=== PATIENT | male | born 1960 | race Caucasian/White ===

== ENCOUNTER 2020-09-01 11:25 | Inpatient (IN) ==
[2020-09-01] MEDS ORDERED: methylPREDNISolone SOD SUC 125 MG/2 ML VIAL IV STA (12:25)
[2020-09-01 12:30] LABS: Basophils % 0.3 % (0.0-0.8); Eosinophils % 0.4 % (0.00-10.9); Hematocrit 45.9 VOL% (42.0-52.0); Hemoglobin 15.2 GM/DL (14.0-18.0); Immature Granulocytes % 0.7 %; Immature Granulocytes Absolute 0.07 #; Lymphocytes # 0.4 10*3/uL (1.4-4.0); Mean Corpuscular HGB Conc 33.1 GM/DL (32-36); Mean Corpuscular Volume 93.1 FL (87-102); Monocytes % 13.9 % (1.7-12.7); Neutrophils % 80.7 % (38.7-73.9); Platelet Count 222 T/CUMM (130-400); Red Blood Count 4.93 MC/CUMM (3.8-5.5); Red Cell Distribution Width 13.5 % (9.3-17.3); White Blood Count 10.5 T/CUMM (4-12)
[2020-09-01] MEDS ORDERED: ALBUTEROL NEB SOLN 5 MG/ML 20 ML/BOTTLE CONT NEB SCH (12:30)
[2020-09-01 13:03] LABS: Albumin 3.1 G/DL (3.4-5.0); Bilirubin,Total 0.5 MG/DL (0.2-1.0); Calcium 9.6 MG/DL (8.5-10.1); Osmolality,Calculated 273.1 MOS/KG (273-304); Total Protein 7.8 G/DL (6.4-8.3)
[2020-09-01 13:10] LABS: Band Neutrophils 50 % (0-10); Lymphocytes 5 % (20-55); Metamyelocytes 4 %; Platelet Estimate Normal; Segmented Neutrophils 28 % (50-85); Total Cells Counted 100
[2020-09-01 13:11] LABS: Anisocytosis Slight; Burr Cells Few; Smudge Cells Few
[2020-09-01 13:12] LABS: Macrocytosis Slight
[2020-09-01] MEDS ORDERED: ACETAMINOPHEN 325 MG TABLET PO PRN (14:21)
[2020-09-01] MEDS ORDERED: ALBUTEROL 2.5 MG/3 ML NEB RESP TX PRN (14:21)
[2020-09-01] MEDS ORDERED: ONDANSETRON 4 MG/2 ML VIAL IV PRN (14:21)
[2020-09-01] MEDS ORDERED: AZITHROMYCIN INJ 500 MG in SODIUM CHLORIDE 0.9% 250 ML IV STA (14:25)
[2020-09-01] MEDS ORDERED: GLUCAGON 1 MG VIAL IM PRN (14:26)
[2020-09-01] MEDS ORDERED: DEXTROSE 50% 25 GM/50 ML VIAL IV PRN (14:26)
[2020-09-01] MEDS ORDERED: SODIUM CHLORIDE 0.9% 1,000 ML IV SCH (14:30)
[2020-09-01] MEDS: ENOXAPARIN 30 MG/0.3 ML SYRINGE SUBCUT SCH (14:55)
[2020-09-01] MEDS: BUDESONIDE/FORMOTEROL 160-4.5 INHALER 6 GM INH SCH ×2 (15:08→20:27)
[2020-09-01] MEDS: cefTRIAXone 1,000 MG in SYRINGE 1 EACH IV SCH (15:10)
[2020-09-01] MEDS: methylPREDNISolone SOD SUC 125 MG/2 ML VIAL IV SCH ×2 (15:11→20:29)
[2020-09-01] MEDS: INSULIN REGULAR 100 UNIT/ML SUBCUT SCH ×2 (16:40→20:17)
[2020-09-01] MEDS: ALBUTEROL/IPRATROPIUM 3 ML NEB RESP TX SCH ×2 (20:10→20:22)
[2020-09-02] MEDS: ALBUTEROL/IPRATROPIUM 3 ML NEB RESP TX SCH ×7 (01:20→19:25)
[2020-09-02] MEDS: methylPREDNISolone SOD SUC 125 MG/2 ML VIAL IV SCH ×4 (02:50→20:51)
[2020-09-02 03:33] LABS: ABG Base Excess 1.3 MMOL/L (-2.5-2.5); ABG HCO3 29.6 MMOL/L (20-26); ABG Oxygen Saturation 92.7 % (95-100); ABG PCO2 65.1 MM HG (35-48); ABG PH 7.276 (7.35-7.45); ABG PO2 70.2 MM HG (80-95); ABG TCO2 31.6 MMOL/L (23-27)
[2020-09-02] MEDS ORDERED: MORPHINE 4 MG/1 ML VIAL IV PRN (06:20)
[2020-09-02] MEDS ORDERED: NITROGLYCERIN SL 0.4 MG TABLET SL PRN (06:20)
[2020-09-02] MEDS ORDERED: ASPIRIN CHEW 81 MG TABLET PO ONE (06:20)
[2020-09-02] MEDS ORDERED: NITROGLYCERIN SL 0.4 MG TABLET SL ONE (06:21)
[2020-09-02 06:28] LABS: Albumin 2.4 G/DL (3.4-5.0); Bilirubin,Total 0.5 MG/DL (0.2-1.0); Calcium 9.2 MG/DL (8.5-10.1); Osmolality,Calculated 281.4 MOS/KG (273-304); Risk Ratio 3.28; Total Protein 6.6 G/DL (6.4-8.3); VLDL CHOLESTEROL 14.6 MG/DL
[2020-09-02 06:38] LABS: Hematocrit 39.2 VOL% (42.0-52.0); Immature Granulocytes % 1.2 %; Immature Granulocytes Absolute 0.05 #; Lymphocytes # 0.2 10*3/uL (1.4-4.0); Lymphocytes % 5.3 % (21.2-54.2); Mean Corpuscular HGB Conc 32.7 GM/DL (32-36); Mean Corpuscular Volume 91.4 FL (87-102); Mean Platelet Volume 10.3 FL (9.6-12.0); Neutrophils % 83.5 % (38.7-73.9); Platelet Count 190 T/CUMM (130-400); Red Blood Count 4.29 MC/CUMM (3.8-5.5); Red Cell Distribution Width 13.6 % (9.3-17.3); White Blood Count 4.1 T/CUMM (4-12)
[2020-09-02 06:41] LABS: Hemoglobin 12.8 GM/DL (14.0-18.0)
[2020-09-02 06:54] LABS: Band Neutrophils 19 % (0-10); Hypochromasia Slight; Lymphocytes 6 % (20-55); Metamyelocytes 4 %; Platelet Estimate Normal; Segmented Neutrophils 61 % (50-85); Total Cells Counted 100
[2020-09-02] MEDS: INSULIN REGULAR 100 UNIT/ML SUBCUT SCH ×4 (07:33→20:15)
[2020-09-02] MEDS: BUDESONIDE/FORMOTEROL 160-4.5 INHALER 6 GM INH SCH ×2 (08:36→20:51)
[2020-09-02] MEDS: PANTOPRAZOLE 40 MG TABLET PO SCH (08:36)
[2020-09-02] MEDS: ENOXAPARIN 30 MG/0.3 ML SYRINGE SUBCUT SCH (14:38)
[2020-09-02] MEDS: cefTRIAXone 1,000 MG in SYRINGE 1 EACH IV SCH (14:38)
[2020-09-02] MEDS: AZITHROMYCIN INJ 250 MG in SODIUM CHLORIDE 0.9% 250 ML IV SCH (14:41)
[2020-09-03] MEDS: ALBUTEROL/IPRATROPIUM 3 ML NEB RESP TX SCH ×7 (00:04→23:50)
[2020-09-03] MEDS: methylPREDNISolone SOD SUC 125 MG/2 ML VIAL IV SCH ×4 (02:47→20:51)
[2020-09-03 08:30] LABS: Calcium 9.4 MG/DL (8.5-10.1)
[2020-09-03 08:31] LABS: Osmolality,Calculated 294.4 MOS/KG (273-304)
[2020-09-03] MEDS: INSULIN REGULAR 100 UNIT/ML SUBCUT SCH ×4 (08:31→22:11)
[2020-09-03] MEDS: BUDESONIDE/FORMOTEROL 160-4.5 INHALER 6 GM INH SCH ×2 (08:32→21:08)
[2020-09-03] MEDS: PANTOPRAZOLE 40 MG TABLET PO SCH (08:32)
[2020-09-03 08:37] LABS: ABG Base Excess -0.2 MMOL/L (-2.5-2.5); ABG HCO3 24.1 MMOL/L (20-26); ABG Oxygen Saturation 90.4 % (95-100); ABG PO2 67.4 MM HG (80-95); ABG TCO2 28.9 MMOL/L (23-27)
[2020-09-03 08:43] LABS: ABG PCO2 85.4 MM HG (35-48); ABG PH 7.178 (7.35-7.45)
[2020-09-03] MEDS: THEOPHYLLINE ER (24 HR) 400 MG CAPSULE PO SCH (10:05)
[2020-09-03 13:36] LABS: Bilirubin,Urine Negative (Negative); Blood, Urine Small mg/dL (Negative); Glucose,Urine (UA) Negative (Negative); Ketones,Urine Negative (Negative); Mucus,Urine Occasional /LPF (Occasional); Nitrite,Urine Negative (Negative); Protein,Urine Negative; RBC,Urine 1 /HPF (0-4); Squamous Epithelial Cell,Urine Occasional /HPF (0-10); Urine Appearance CLEAR (Clear); Urine Color Yellow (Yellow); Urine Specific Gravity 1.012 (1.001-1.035); Urine Urobilinogen < 2.0 EU/DL (0.2-1.0); WBC,Urine 2 /HPF (0-6)
[2020-09-03] MEDS: cefTRIAXone 1,000 MG in SYRINGE 1 EACH IV SCH (15:32)
[2020-09-03] MEDS: ENOXAPARIN 30 MG/0.3 ML SYRINGE SUBCUT SCH (15:32)
[2020-09-03] MEDS: AZITHROMYCIN INJ 250 MG in SODIUM CHLORIDE 0.9% 250 ML IV SCH (15:33)
[2020-09-03] MEDS: ALPRAZolam 0.5 MG TABLET PO PRN (16:13)
[2020-09-04] MEDS: MORPHINE 4 MG/1 ML VIAL IV PRN ×2 (00:10→23:15)
[2020-09-04] MEDS: ALBUTEROL/IPRATROPIUM 3 ML NEB RESP TX SCH ×6 (03:40→20:56)
[2020-09-04] MEDS: methylPREDNISolone SOD SUC 125 MG/2 ML VIAL IV SCH ×4 (04:43→22:09)
[2020-09-04 07:46] LABS: ABG Base Excess 5.4 MMOL/L (-2.5-2.5); ABG HCO3 29.3 MMOL/L (20-26); ABG Oxygen Saturation 98.7 % (95-100); ABG PH 7.234 (7.35-7.45); ABG TCO2 33.2 MMOL/L (23-27); Allen Test Positive; Pt O2 Delivery Device BIPAP
[2020-09-04 07:49] LABS: ABG PCO2 88.8 MM HG (35-48)
[2020-09-04] MEDS: THEOPHYLLINE ER (24 HR) 400 MG CAPSULE PO SCH (08:02)
[2020-09-04] MEDS: PANTOPRAZOLE 40 MG TABLET PO SCH (08:03)
[2020-09-04] MEDS: INSULIN REGULAR 100 UNIT/ML SUBCUT SCH ×4 (08:03→22:10)
[2020-09-04] MEDS: BUDESONIDE/FORMOTEROL 160-4.5 INHALER 6 GM INH SCH ×2 (08:05→21:19)
[2020-09-04] MEDS ORDERED: LEVOFLOXACIN INJ 500 MG in PREMIX 1 EACH IV SCH (10:00)
[2020-09-04] MEDS: CEFEPIME 1,000 MG in SODIUM CHLORIDE 0.9% 100 ML IV SCH ×2 (10:09→23:15)
[2020-09-04] MEDS: ALPRAZolam 0.5 MG TABLET PO PRN ×2 (15:36→23:16)
[2020-09-04] MEDS: ENOXAPARIN 30 MG/0.3 ML SYRINGE SUBCUT SCH (15:39)
[2020-09-05] MEDS: ALBUTEROL/IPRATROPIUM 3 ML NEB RESP TX SCH ×6 (03:43→22:58)
[2020-09-05] MEDS: methylPREDNISolone SOD SUC 125 MG/2 ML VIAL IV SCH ×4 (04:03→22:17)
[2020-09-05 04:39] LABS: Hematocrit 38.6 VOL% (42.0-52.0); Hemoglobin 12.7 GM/DL (14.0-18.0); Immature Granulocytes % 9.8 %; Immature Granulocytes Absolute 1.05 #; Lymphocytes # 0.5 10*3/uL (1.4-4.0); Lymphocytes % 4.6 % (21.2-54.2); Mean Corpuscular HGB Conc 32.9 GM/DL (32-36); Mean Platelet Volume 9.1 FL (9.6-12.0); Monocytes % 7.2 % (1.7-12.7); Neutrophils % 78.4 % (38.7-73.9); Platelet Count 194 T/CUMM (130-400); Red Blood Count 4.24 MC/CUMM (3.8-5.5); Red Cell Distribution Width 13.3 % (9.3-17.3); White Blood Count 10.8 T/CUMM (4-12)
[2020-09-05 05:02] LABS: Alanine Aminotransferase 20 U/L (16-61); Albumin 2.4 G/DL (3.4-5.0); Alkaline Phosphatase 77 U/L (45-117); Aspartate Amino Transferase 12 U/L (0-37); Bilirubin,Total < 0.39 MG/DL (0.2-1.0); Blood Urea Nitrogen 47 MG/DL (7-18); Calcium 8.9 MG/DL (8.5-10.1); Estimated Glom Filtration Rate 70 ML/MIN; Glucose 156 MG/DL (74-106); Osmolality,Calculated 284.1 MOS/KG (273-304); Total Protein 5.9 G/DL (6.4-8.3)
[2020-09-05 05:17] LABS: Atypical Lymphocytes Few; Hypochromasia 1+; Lymphocytes 10 % (20-55); Microcytosis 1+; Platelet Estimate Adequate; Segmented Neutrophils 80 % (50-85); Total Cells Counted 100
[2020-09-05] MEDS: THEOPHYLLINE ER (24 HR) 400 MG CAPSULE PO SCH (08:33)
[2020-09-05] MEDS: PANTOPRAZOLE 40 MG TABLET PO SCH (08:33)
[2020-09-05] MEDS: INSULIN REGULAR 100 UNIT/ML SUBCUT SCH ×4 (08:34→22:19)
[2020-09-05] MEDS: BUDESONIDE/FORMOTEROL 160-4.5 INHALER 6 GM INH SCH ×2 (08:35→22:20)
[2020-09-05] MEDS ORDERED: LEVOFLOXACIN INJ 500 MG in PREMIX 1 EACH IV SCH (11:00)
[2020-09-05] MEDS: CEFEPIME 1,000 MG in SODIUM CHLORIDE 0.9% 100 ML IV SCH ×3 (11:20→22:25)
[2020-09-05] MEDS: ENOXAPARIN 40 MG/0.4 ML SYRINGE SUBCUT SCH (15:30)
[2020-09-05] MEDS: ALPRAZolam 0.5 MG TABLET PO PRN (22:20)
[2020-09-06] MEDS: ALBUTEROL/IPRATROPIUM 3 ML NEB RESP TX SCH ×5 (03:49→19:40)
[2020-09-06 05:01] LABS: Basophils # 0.1 10*3/uL (0.0-0.2); Basophils % 0.8 % (0.0-0.8); Hematocrit 38.4 VOL% (42.0-52.0); Hemoglobin 12.7 GM/DL (14.0-18.0); Immature Granulocytes % 9.6 %; Immature Granulocytes Absolute 1.11 #; Lymphocytes # 0.6 10*3/uL (1.4-4.0); Mean Corpuscular HGB Conc 33.1 GM/DL (32-36); Mean Corpuscular Volume 91.2 FL (87-102); Mean Platelet Volume 9.4 FL (9.6-12.0); Monocytes % 4.3 % (1.7-12.7); Neutrophils % 80.3 % (38.7-73.9); Platelet Count 174 T/CUMM (130-400); Red Blood Count 4.21 MC/CUMM (3.8-5.5); Red Cell Distribution Width 13.6 % (9.3-17.3); White Blood Count 11.5 T/CUMM (4-12)
[2020-09-06 05:19] LABS: Alanine Aminotransferase 19 U/L (16-61); Albumin 2.4 G/DL (3.4-5.0); Alkaline Phosphatase 67 U/L (45-117); Aspartate Amino Transferase 15 U/L (0-37); Bilirubin,Total < 0.39 MG/DL (0.2-1.0); Blood Urea Nitrogen 39 MG/DL (7-18); Calcium 8.7 MG/DL (8.5-10.1); Estimated Glom Filtration Rate 71 ML/MIN; Glucose 143 MG/DL (74-106); Osmolality,Calculated 278.2 MOS/KG (273-304); Total Protein 5.6 G/DL (6.4-8.3)
[2020-09-06] MEDS: CEFEPIME 1,000 MG in SODIUM CHLORIDE 0.9% 100 ML IV SCH ×4 (05:26→23:32)
[2020-09-06 05:35] LABS: Hypochromasia 1+; Lymphocytes 8 % (20-55); Microcytosis 1+; Platelet Estimate Adequate; Segmented Neutrophils 83 % (50-85); Total Cells Counted 100
[2020-09-06] MEDS: methylPREDNISolone SOD SUC 125 MG/2 ML VIAL IV SCH ×3 (06:13→21:19)
[2020-09-06] MEDS: INSULIN REGULAR 100 UNIT/ML SUBCUT SCH ×4 (07:37→21:20)
[2020-09-06] MEDS: THEOPHYLLINE ER (24 HR) 400 MG CAPSULE PO SCH (08:56)
[2020-09-06] MEDS: ASPIRIN EC 81 MG TABLET PO SCH (08:56)
[2020-09-06] MEDS: PANTOPRAZOLE 40 MG TABLET PO SCH (08:56)
[2020-09-06] MEDS: BUDESONIDE/FORMOTEROL 160-4.5 INHALER 6 GM INH SCH ×2 (08:57→21:20)
[2020-09-06] MEDS: LEVOFLOXACIN 750 MG TABLET PO SCH (12:40)
[2020-09-06] MEDS: ALPRAZolam 0.5 MG TABLET PO PRN ×2 (13:28→21:21)
[2020-09-06] MEDS: ENOXAPARIN 40 MG/0.4 ML SYRINGE SUBCUT SCH (15:33)
[2020-09-07] MEDS: ALBUTEROL/IPRATROPIUM 3 ML NEB RESP TX SCH ×6 (00:07→19:18)
[2020-09-07] MEDS: methylPREDNISolone SOD SUC 125 MG/2 ML VIAL IV SCH ×2 (05:26→12:00)
[2020-09-07] MEDS: CEFEPIME 1,000 MG in SODIUM CHLORIDE 0.9% 100 ML IV SCH ×2 (05:27→10:17)
[2020-09-07] MEDS: INSULIN REGULAR 100 UNIT/ML SUBCUT SCH ×4 (07:38→21:11)
[2020-09-07] MEDS: ALPRAZolam 0.5 MG TABLET PO PRN ×2 (09:00→20:59)
[2020-09-07] MEDS: THEOPHYLLINE ER (24 HR) 400 MG CAPSULE PO SCH (09:00)
[2020-09-07] MEDS: PANTOPRAZOLE 40 MG TABLET PO SCH (09:00)
[2020-09-07] MEDS: ASPIRIN EC 81 MG TABLET PO SCH (09:00)
[2020-09-07] MEDS: BUDESONIDE/FORMOTEROL 160-4.5 INHALER 6 GM INH SCH ×2 (09:05→20:59)
[2020-09-07] MEDS: LEVOFLOXACIN 750 MG TABLET PO SCH (12:00)
[2020-09-07] MEDS: ENOXAPARIN 40 MG/0.4 ML SYRINGE SUBCUT SCH (14:38)
[2020-09-08] MEDS: ALBUTEROL/IPRATROPIUM 3 ML NEB RESP TX SCH ×7 (00:10→23:56)
[2020-09-08] MEDS: methylPREDNISolone SOD SUC 40 MG/1 ML VIAL IV SCH ×3 (00:45→23:38)
[2020-09-08] MEDS: ALPRAZolam 0.5 MG TABLET PO PRN (00:46)
[2020-09-08 05:37] LABS: Basophils # 0.1 10*3/uL (0.0-0.2); Basophils % 0.3 % (0.0-0.8); Hematocrit 36.2 VOL% (42.0-52.0); Immature Granulocytes Absolute 1.49 #; Lymphocytes # 0.7 10*3/uL (1.4-4.0); Lymphocytes % 3.1 % (21.2-54.2); Mean Corpuscular HGB Conc 33.1 GM/DL (32-36); Mean Corpuscular Volume 91.4 FL (87-102); Mean Platelet Volume 9.1 FL (9.6-12.0); Monocytes % 2.6 % (1.7-12.7); Platelet Count 176 T/CUMM (130-400); Red Blood Count 3.96 MC/CUMM (3.8-5.5); Red Cell Distribution Width 13.6 % (9.3-17.3); White Blood Count 21.2 T/CUMM (4-12)
[2020-09-08 05:58] LABS: Calcium 8.8 MG/DL (8.5-10.1); Osmolality,Calculated 273.4 MOS/KG (273-304)
[2020-09-08 07:52] LABS: Hypochromasia 1+; Lymphocytes 7 % (20-55); Microcytosis 1+; Platelet Estimate Adequate; Segmented Neutrophils 88 % (50-85); Total Cells Counted 100
[2020-09-08] MEDS: INSULIN REGULAR 100 UNIT/ML SUBCUT SCH ×4 (08:01→21:08)
[2020-09-08] MEDS: ASPIRIN EC 81 MG TABLET PO SCH (08:42)
[2020-09-08] MEDS: BUDESONIDE/FORMOTEROL 160-4.5 INHALER 6 GM INH SCH ×2 (08:42→21:07)
[2020-09-08] MEDS: PANTOPRAZOLE 40 MG TABLET PO SCH (08:43)
[2020-09-08] MEDS: THEOPHYLLINE ER (24 HR) 400 MG CAPSULE PO SCH (08:43)
[2020-09-08] MEDS: ALPRAZolam 0.5 MG TABLET PO SCH ×2 (08:43→21:08)
[2020-09-08] MEDS: LEVOFLOXACIN 750 MG TABLET PO SCH (11:49)
[2020-09-08] MEDS: ENOXAPARIN 40 MG/0.4 ML SYRINGE SUBCUT SCH (14:30)
[2020-09-09] MEDS: ALBUTEROL/IPRATROPIUM 3 ML NEB RESP TX SCH ×3 (04:11→10:51)
[2020-09-09] MEDS: ASPIRIN EC 81 MG TABLET PO SCH (08:24)
[2020-09-09] MEDS: THEOPHYLLINE ER (24 HR) 400 MG CAPSULE PO SCH (08:24)
[2020-09-09] MEDS: ALPRAZolam 0.5 MG TABLET PO SCH (08:24)
[2020-09-09] MEDS: PANTOPRAZOLE 40 MG TABLET PO SCH (08:24)
[2020-09-09] MEDS: BUDESONIDE/FORMOTEROL 160-4.5 INHALER 6 GM INH SCH (08:25)
[2020-09-09] MEDS: INSULIN REGULAR 100 UNIT/ML SUBCUT SCH (09:20)
[2020-09-09 11:51] VITALS: BP 120/77
== END 2020-09-09 11:45 | disposition home or self-care (01) | DRG 190 ==
LOC: N.ED 11:25 → SUATTDRO 14:21 → N.ICU 14:21 → N.3E 09-06 10:49
PROVIDERS: ADMIT Internal Medicine; ATTEND Internal Medicine

== ENCOUNTER 2022-01-06 10:02 | Inpatient (IN) ==
[2022-01-06] MEDS ORDERED: methylPREDNISolone SOD SUC 125 MG/2 ML VIAL IV STA (10:19)
[2022-01-06] MEDS ORDERED: ALBUTEROL NEB SOLN 5 MG/ML 20 ML/BOTTLE CONT NEB SCH (10:30)
[2022-01-06 10:43] LABS: Arterial Base Excess iSTAT 12 MMOL/L (-2.5-2.5); Arterial Bicarbonate iSTAT 40.5 MMOL/L (20-26); Arterial O2 Saturation iSTAT 89 % (95-100); Arterial PCO2 iSTAT 79 MM HG (35-48); Arterial PO2 iSTAT 66 MM HG (80-95); Arterial Total CO2 iSTAT 43 MMO/L (23-27); Arterial pH iSTAT 7.317 (7.35-7.45)
[2022-01-06 10:51] LABS: Basophils % 0.3 % (0.0-0.8); Eosinophils # 0.1 10*3/uL (0.0-0.87); Eosinophils % 0.6 % (0.00-10.9); Hematocrit 30.4 VOL% (42.0-52.0); Hemoglobin 9.4 GM/DL (14.0-18.0); Immature Granulocytes % 0.6 %; Immature Granulocytes Absolute 0.06 #; Lymphocytes # 0.7 10*3/uL (1.4-4.0); Lymphocytes % 6.1 % (21.2-54.2); Mean Corpuscular HGB Conc 30.9 GM/DL (32-36); Mean Corpuscular Volume 98.1 FL (87-102); Mean Platelet Volume 9.4 FL (9.6-12.0); Monocytes # 1.5 10*3/uL (0.11-0.8); Monocytes % 14.1 % (1.7-12.7); Neutrophils % 78.3 % (38.7-73.9); Platelet Count 188 T/CUMM (130-400); Red Cell Distribution Width 12.4 % (9.3-17.3); White Blood Count 10.9 T/CUMM (4-12)
[2022-01-06] MEDS ORDERED: LEVOFLOXACIN INJ 750 MG/150 ML PREMIX IV STA (11:12)
[2022-01-06 11:23] LABS: Alanine Aminotransferase 20 U/L (16-61); Albumin 2.8 G/DL (3.4-5.0); Alkaline Phosphatase 102 U/L (45-117); Aspartate Amino Transferase 12 U/L (0-37); Bilirubin,Total < 0.39 MG/DL (0.20-1.00); Blood Urea Nitrogen 18 MG/DL (7-18); Calcium 8.7 MG/DL (8.5-10.1); Carbon Dioxide 40 MMOL/L (21-32); Chloride 95 MMOL/L (98-107); Estimated Glom Filtration Rate 55 ML/MIN; Glucose 155 MG/DL (74-106); Osmolality,Calculated 279.7 MOS/KG (273-304); Potassium 4.6 MMOL/L (3.5-5.1); Sodium 138 MMOL/L (136-145); Total Protein 6.1 G/DL (6.4-8.2)
[2022-01-06] MEDS ORDERED: ALBUTEROL 2.5 MG/3 ML NEB RESP TX STA (11:25)
[2022-01-06 12:18] LABS: Arterial Base Excess iSTAT 11 MMOL/L (-2.5-2.5); Arterial Bicarbonate iSTAT 38.5 MMOL/L (20-26); Arterial O2 Saturation iSTAT 88 % (95-100); Arterial PCO2 iSTAT 72 MM HG (35-48); Arterial PO2 iSTAT 61 MM HG (80-95); Arterial Total CO2 iSTAT 41 MMO/L (23-27); Arterial pH iSTAT 7.334 (7.35-7.45)
[2022-01-06] MEDS ORDERED: ALPRAZolam 0.5 MG TABLET PO ONE (12:31)
[2022-01-06] MEDS ORDERED: ONDANSETRON 4 MG/2 ML VIAL IV PRN (12:32)
[2022-01-06] MEDS ORDERED: ALPRAZolam 0.5 MG TABLET PO PRN (12:55)
[2022-01-06] MEDS ORDERED: ENOXAPARIN 30 MG/0.3 ML SYRINGE SUBCUT SCH (13:00)
[2022-01-06] MEDS: PANTOPRAZOLE 40 MG TABLET PO SCH (14:17)
[2022-01-06] MEDS: methylPREDNISolone SOD SUC 125 MG/2 ML VIAL IV SCH (17:06)
[2022-01-06] MEDS: ALBUTEROL/IPRATROPIUM 3 ML NEB RESP TX SCH (19:11)
[2022-01-07] MEDS: ALBUTEROL/IPRATROPIUM 3 ML NEB RESP TX SCH ×3 (00:16→13:17)
[2022-01-07] MEDS: methylPREDNISolone SOD SUC 125 MG/2 ML VIAL IV SCH ×2 (03:30→15:58)
[2022-01-07 03:38] LABS: ABG Base Excess 11.1 MMOL/L (-2.5-2.5); ABG HCO3 34.8 MMOL/L (20-26); ABG Oxygen Saturation 95.2 % (95-100); ABG PH 7.265 (7.35-7.45); ABG PO2 79.9 MM HG (80-95); ABG TCO2 38.6 MMOL/L (23-27)
[2022-01-07 04:54] LABS: Basophils % 0.1 % (0.0-0.8); Hematocrit 31.2 VOL% (42.0-52.0); Hemoglobin 9.7 GM/DL (14.0-18.0); Immature Granulocytes % 0.6 %; Immature Granulocytes Absolute 0.04 #; Lymphocytes # 0.4 10*3/uL (1.4-4.0); Lymphocytes % 6.2 % (21.2-54.2); Mean Corpuscular HGB Conc 31.1 GM/DL (32-36); Mean Platelet Volume 9.9 FL (9.6-12.0); Monocytes # 0.4 10*3/uL (0.11-0.8); Monocytes % 5.6 % (1.7-12.7); Neutrophils % 87.5 % (38.7-73.9); Platelet Count 194 T/CUMM (130-400); Red Blood Count 3.25 MC/CUMM (3.8-5.5); Red Cell Distribution Width 11.9 % (9.3-17.3)
[2022-01-07 05:22] LABS: Blood Urea Nitrogen 25 MG/DL (7-18); Calcium 9.8 MG/DL (8.5-10.1); Carbon Dioxide 38 MMOL/L (21-32); Chloride 95 MMOL/L (98-107); Estimated Glom Filtration Rate 64 ML/MIN; Glucose 155 MG/DL (74-106); High Sensitive Troponin I* < 3.0 ng/L (0-78); Potassium 4.6 MMOL/L (3.5-5.1); Sodium 136 MMOL/L (136-145)
[2022-01-07] MEDS: ENOXAPARIN 40 MG/0.4 ML SYRINGE SUBCUT SCH (08:57)
[2022-01-07] MEDS ORDERED: LEVOFLOXACIN INJ 500 MG/100 ML PREMIX IV SCH (09:00)
[2022-01-07] MEDS: PANTOPRAZOLE 40 MG TABLET PO SCH ×2 (09:31→09:47)
[2022-01-07 11:32] LABS: Arterial Base Excess iSTAT 13 MMOL/L (-2.5-2.5); Arterial Bicarbonate iSTAT 41.1 MMOL/L (20-26); Arterial O2 Saturation iSTAT 96 % (95-100); Arterial PCO2 iSTAT 80 MM HG (35-48); Arterial PO2 iSTAT 94 MM HG (80-95); Arterial Total CO2 iSTAT 43 MMO/L (23-27); Arterial pH iSTAT 7.319 (7.35-7.45)
[2022-01-07 16:39] LABS: Barbiturates Screen,Urine Negative (Negative); Benzodiazepines Screen,Urine Positive (Negative); Cannabinoid Screen,Urine Positive (Negative); Opiate Screen,Urine Positive (Negative); Phencyclidine Screen,Urine Negative (Negative)
[2022-01-07] MEDS: ALPRAZolam 0.25 MG TABLET PO PRN (21:47)
[2022-01-08] MEDS: ALBUTEROL/IPRATROPIUM 3 ML NEB RESP TX SCH ×5 (00:19→19:48)
[2022-01-08 03:21] LABS: ABG Base Excess 10.8 MMOL/L (-2.5-2.5); ABG HCO3 34.5 MMOL/L (20-26); ABG Oxygen Saturation 96.1 % (95-100); ABG PCO2 64.6 MM HG (35-48); ABG PH 7.377 (7.35-7.45); ABG PO2 80.7 MM HG (80-95); ABG TCO2 35.3 MMOL/L (23-27); Allen Test Positive; Pt O2 Delivery Device BIPAP
[2022-01-08] MEDS: methylPREDNISolone SOD SUC 125 MG/2 ML VIAL IV SCH ×2 (04:19→16:18)
[2022-01-08 04:32] LABS: Basophils % 0.2 % (0.0-0.8); Hematocrit 27.8 VOL% (42.0-52.0); Hemoglobin 8.7 GM/DL (14.0-18.0); Immature Granulocytes % 1.7 %; Immature Granulocytes Absolute 0.19 #; Lymphocytes # 0.6 10*3/uL (1.4-4.0); Mean Corpuscular HGB Conc 31.3 GM/DL (32-36); Mean Corpuscular Volume 94.2 FL (87-102); Mean Platelet Volume 9.4 FL (9.6-12.0); Monocytes # 0.8 10*3/uL (0.11-0.8); Monocytes % 6.7 % (1.7-12.7); NRBC # 0.02 10*3/uL; Neutrophils % 86.4 % (38.7-73.9); Platelet Count 244 T/CUMM (130-400); Red Blood Count 2.95 MC/CUMM (3.8-5.5); Red Cell Distribution Width 12.1 % (9.3-17.3); White Blood Count 11.2 T/CUMM (4-12)
[2022-01-08 04:50] LABS: Potassium 4.7 MMOL/L (3.5-5.1)
[2022-01-08 05:21] LABS: Osmolality,Calculated 278.5 MOS/KG (273-304)
[2022-01-08] MEDS: PANTOPRAZOLE 40 MG TABLET PO SCH (08:57)
[2022-01-08] MEDS: LEVOFLOXACIN 500 MG TABLET PO SCH (08:57)
[2022-01-08] MEDS: ASPIRIN EC 81 MG TABLET PO SCH (08:57)
[2022-01-08] MEDS: ENOXAPARIN 40 MG/0.4 ML SYRINGE SUBCUT SCH (08:58)
[2022-01-08] MEDS: carvediloL 3.125 MG TABLET PO SCH ×2 (08:58→20:04)
[2022-01-08 10:14] LABS: Arterial Base Excess iSTAT 11 MMOL/L (-2.5-2.5); Arterial Bicarbonate iSTAT 38.2 MMOL/L (20-26); Arterial O2 Saturation iSTAT 95 % (95-100); Arterial PCO2 iSTAT 69 MM HG (35-48); Arterial PO2 iSTAT 82 MM HG (80-95); Arterial Total CO2 iSTAT 40 MMO/L (23-27); Arterial pH iSTAT 7.353 (7.35-7.45)
[2022-01-08] MEDS: ALPRAZolam 0.25 MG TABLET PO PRN ×2 (19:32→23:32)
[2022-01-09] MEDS: ALBUTEROL/IPRATROPIUM 3 ML NEB RESP TX SCH ×4 (00:17→19:05)
[2022-01-09] MEDS: methylPREDNISolone SOD SUC 125 MG/2 ML VIAL IV SCH ×2 (03:10→15:57)
[2022-01-09 03:55] LABS: Basophils % 0.4 % (0.0-0.8); Hematocrit 27.7 VOL% (42.0-52.0); Hemoglobin 8.8 GM/DL (14.0-18.0); Immature Granulocytes % 3.8 %; Immature Granulocytes Absolute 0.43 #; Lymphocytes # 0.7 10*3/uL (1.4-4.0); Lymphocytes % 6.3 % (21.2-54.2); Mean Corpuscular HGB Conc 31.8 GM/DL (32-36); Mean Corpuscular Volume 93.9 FL (87-102); Mean Platelet Volume 9.5 FL (9.6-12.0); Monocytes % 8.7 % (1.7-12.7); Neutrophils % 80.8 % (38.7-73.9); Platelet Count 260 T/CUMM (130-400); Red Blood Count 2.95 MC/CUMM (3.8-5.5); Red Cell Distribution Width 12.4 % (9.3-17.3); White Blood Count 11.3 T/CUMM (4-12)
[2022-01-09 04:04] LABS: ABG Base Excess 11.2 MMOL/L (-2.5-2.5); ABG HCO3 34.9 MMOL/L (20-26); ABG Oxygen Saturation 93.9 % (95-100); ABG PCO2 59.6 MM HG (35-48); ABG PO2 69.3 MM HG (80-95)
[2022-01-09 04:12] LABS: Calcium 9.2 MG/DL (8.5-10.1); Osmolality,Calculated 284.8 MOS/KG (273-304); Potassium 4.8 MMOL/L (3.5-5.1)
[2022-01-09] MEDS: ASPIRIN EC 81 MG TABLET PO SCH (08:42)
[2022-01-09] MEDS: PANTOPRAZOLE 40 MG TABLET PO SCH (08:42)
[2022-01-09] MEDS: carvediloL 3.125 MG TABLET PO SCH ×2 (08:42→21:16)
[2022-01-09] MEDS: ENOXAPARIN 40 MG/0.4 ML SYRINGE SUBCUT SCH (08:42)
[2022-01-09] MEDS: LEVOFLOXACIN 500 MG TABLET PO SCH (08:42)
[2022-01-09] MEDS: ALPRAZolam 0.25 MG TABLET PO PRN ×2 (15:55→21:16)
[2022-01-10] MEDS: ALBUTEROL/IPRATROPIUM 3 ML NEB RESP TX SCH ×4 (00:12→19:34)
[2022-01-10] MEDS: ALPRAZolam 0.25 MG TABLET PO PRN ×4 (01:25→21:40)
[2022-01-10] MEDS ORDERED: SODIUM CHLORIDE 0.65% NASAL SPRAY 45 ML BOTTLE BOTH NARES PRN (01:31)
[2022-01-10] MEDS: methylPREDNISolone SOD SUC 125 MG/2 ML VIAL IV SCH (02:02)
[2022-01-10 04:46] LABS: Calcium 9.1 MG/DL (8.5-10.1); Osmolality,Calculated 287.1 MOS/KG (273-304); Potassium 4.8 MMOL/L (3.5-5.1)
[2022-01-10] MEDS: PANTOPRAZOLE 40 MG TABLET PO SCH (08:26)
[2022-01-10] MEDS: carvediloL 3.125 MG TABLET PO SCH ×2 (08:26→20:53)
[2022-01-10] MEDS: ENOXAPARIN 40 MG/0.4 ML SYRINGE SUBCUT SCH (08:26)
[2022-01-10] MEDS: LEVOFLOXACIN 500 MG TABLET PO SCH (08:26)
[2022-01-10] MEDS: ASPIRIN EC 81 MG TABLET PO SCH (08:26)
[2022-01-10] MEDS: SACUBITRIL/VALSARTAN 49-51 MG TABLET PO SCH ×2 (10:12→20:54)
[2022-01-10] MEDS: methylPREDNISolone SOD SUC 40 MG/1 ML VIAL IV SCH ×2 (10:55→17:50)
[2022-01-11] MEDS: ALBUTEROL/IPRATROPIUM 3 ML NEB RESP TX SCH ×5 (01:49→23:10)
[2022-01-11] MEDS: methylPREDNISolone SOD SUC 40 MG/1 ML VIAL IV SCH ×3 (02:04→18:45)
[2022-01-11] MEDS: ALPRAZolam 0.25 MG TABLET PO PRN ×6 (02:04→23:45)
[2022-01-11] MEDS: ENOXAPARIN 40 MG/0.4 ML SYRINGE SUBCUT SCH (08:09)
[2022-01-11] MEDS: LEVOFLOXACIN 500 MG TABLET PO SCH (08:09)
[2022-01-11] MEDS: carvediloL 3.125 MG TABLET PO SCH ×2 (08:09→20:19)
[2022-01-11] MEDS: SACUBITRIL/VALSARTAN 49-51 MG TABLET PO SCH ×2 (08:09→20:18)
[2022-01-11] MEDS: ASPIRIN EC 81 MG TABLET PO SCH (08:09)
[2022-01-11] MEDS: PANTOPRAZOLE 40 MG TABLET PO SCH (08:10)
[2022-01-11 09:39] LABS: Calcium 9.2 MG/DL (8.5-10.1); Osmolality,Calculated 286.8 MOS/KG (273-304); Potassium 5.3 MMOL/L (3.5-5.1)
[2022-01-11 16:37] LABS: Osmolality,Calculated 281.8 MOS/KG (273-304); Potassium 5.2 MMOL/L (3.5-5.1)
[2022-01-12] MEDS: methylPREDNISolone SOD SUC 40 MG/1 ML VIAL IV SCH (01:49)
[2022-01-12 04:16] LABS: Calcium 8.8 MG/DL (8.5-10.1); Potassium 4.7 MMOL/L (3.5-5.1)
[2022-01-12] MEDS: ALBUTEROL/IPRATROPIUM 3 ML NEB RESP TX SCH ×3 (07:47→19:10)
[2022-01-12] MEDS: SACUBITRIL/VALSARTAN 49-51 MG TABLET PO SCH ×2 (08:47→21:00)
[2022-01-12] MEDS: ENOXAPARIN 40 MG/0.4 ML SYRINGE SUBCUT SCH (08:47)
[2022-01-12] MEDS: LEVOFLOXACIN 500 MG TABLET PO SCH (08:47)
[2022-01-12] MEDS: carvediloL 3.125 MG TABLET PO SCH ×2 (08:47→21:01)
[2022-01-12] MEDS: PANTOPRAZOLE 40 MG TABLET PO SCH (08:47)
[2022-01-12] MEDS: ALPRAZolam 0.25 MG TABLET PO PRN ×3 (08:51→16:26)
[2022-01-12] MEDS: ASPIRIN EC 81 MG TABLET PO SCH (08:52)
[2022-01-12] MEDS: predniSONE 20 MG TABLET PO SCH ×3 (11:35→21:01)
[2022-01-13] MEDS: ALPRAZolam 0.25 MG TABLET PO PRN ×4 (01:35→20:54)
[2022-01-13 05:36] LABS: Calcium 9.1 MG/DL (8.5-10.1); Osmolality,Calculated 282.2 MOS/KG (273-304); Potassium 5.5 MMOL/L (3.5-5.1)
[2022-01-13] MEDS: ALBUTEROL/IPRATROPIUM 3 ML NEB RESP TX SCH ×5 (07:15→23:55)
[2022-01-13] MEDS: ASPIRIN EC 81 MG TABLET PO SCH (09:28)
[2022-01-13] MEDS: predniSONE 20 MG TABLET PO SCH ×3 (09:29→20:50)
[2022-01-13] MEDS: ENOXAPARIN 40 MG/0.4 ML SYRINGE SUBCUT SCH (09:29)
[2022-01-13] MEDS: PANTOPRAZOLE 40 MG TABLET PO SCH (09:29)
[2022-01-13] MEDS: carvediloL 3.125 MG TABLET PO SCH ×2 (09:29→20:50)
[2022-01-13] MEDS ORDERED: SODIUM POLYSTYRENE SULFATE 15 GM/60 ML BOTTLE PO ONE (10:00)
[2022-01-13] MEDS: SACUBITRIL/VALSARTAN 49-51 MG TABLET PO SCH (10:27)
[2022-01-13] MEDS: DAPAGLIFLOZIN 10 MG TABLET PO SCH (10:38)
[2022-01-13] MEDS: valACYclovir 500 MG TABLET PO SCH ×2 (15:04→20:50)
[2022-01-14] MEDS: ALBUTEROL/IPRATROPIUM 3 ML NEB RESP TX SCH ×4 (00:55→18:58)
[2022-01-14 05:20] LABS: Basophils # 0.1 10*3/uL (0.0-0.2); Basophils % 0.4 % (0.0-0.8); Hematocrit 26.9 VOL% (42.0-52.0); Hemoglobin 8.4 GM/DL (14.0-18.0); Immature Granulocytes % 9.8 %; Immature Granulocytes Absolute 3.06 #; Lymphocytes # 1.2 10*3/uL (1.4-4.0); Lymphocytes % 3.7 % (21.2-54.2); Mean Corpuscular HGB Conc 31.2 GM/DL (32-36); Mean Corpuscular Volume 95.7 FL (87-102); Mean Platelet Volume 8.9 FL (9.6-12.0); Monocytes # 1.2 10*3/uL (0.11-0.8); Monocytes % 3.7 % (1.7-12.7); Neutrophils % 82.4 % (38.7-73.9); Platelet Count 317 T/CUMM (130-400); Red Blood Count 2.81 MC/CUMM (3.8-5.5); Red Cell Distribution Width 13.3 % (9.3-17.3); White Blood Count 31.3 T/CUMM (4-12)
[2022-01-14 05:34] LABS: Potassium 4.5 MMOL/L (3.5-5.1)
[2022-01-14 05:55] LABS: Atypical Lymphocytes Few; Band Neutrophils 9 % (0-10); Lymphocytes 11 % (20-55); Myelocytes 3 %; Platelet Estimate Normal; Total Cells Counted 100
[2022-01-14 05:56] LABS: Anisocytosis 1+; Macrocytosis 1+
[2022-01-14] MEDS: ALPRAZolam 0.25 MG TABLET PO PRN ×3 (06:37→20:30)
[2022-01-14] MEDS: SACUBITRIL/VALSARTAN 49-51 MG TABLET PO SCH ×2 (09:37→20:30)
[2022-01-14] MEDS: valACYclovir 500 MG TABLET PO SCH ×3 (09:37→21:16)
[2022-01-14] MEDS: DAPAGLIFLOZIN 10 MG TABLET PO SCH (09:38)
[2022-01-14] MEDS: predniSONE 20 MG TABLET PO SCH ×3 (09:38→20:30)
[2022-01-14] MEDS: PANTOPRAZOLE 40 MG TABLET PO SCH (09:38)
[2022-01-14] MEDS: ENOXAPARIN 40 MG/0.4 ML SYRINGE SUBCUT SCH (09:38)
[2022-01-14] MEDS: ASPIRIN EC 81 MG TABLET PO SCH (09:38)
[2022-01-14] MEDS: carvediloL 3.125 MG TABLET PO SCH ×2 (09:38→20:30)
[2022-01-15] MEDS: ALBUTEROL/IPRATROPIUM 3 ML NEB RESP TX SCH ×5 (00:05→23:30)
[2022-01-15] MEDS: ALPRAZolam 0.25 MG TABLET PO PRN (02:26)
[2022-01-15] MEDS: ALBUTEROL 2.5 MG/3 ML NEB RESP TX PRN (02:32)
[2022-01-15] MEDS ORDERED: ALPRAZolam 0.25 MG TABLET PO PRN (06:25)
[2022-01-15] MEDS: valACYclovir 500 MG TABLET PO SCH ×3 (08:35→22:33)
[2022-01-15] MEDS: carvediloL 3.125 MG TABLET PO SCH ×2 (08:36→22:33)
[2022-01-15] MEDS: SACUBITRIL/VALSARTAN 49-51 MG TABLET PO SCH ×2 (08:36→22:30)
[2022-01-15] MEDS: ASPIRIN EC 81 MG TABLET PO SCH (08:36)
[2022-01-15] MEDS: DAPAGLIFLOZIN 10 MG TABLET PO SCH (08:36)
[2022-01-15] MEDS: predniSONE 20 MG TABLET PO SCH ×3 (08:36→22:33)
[2022-01-15] MEDS: PANTOPRAZOLE 40 MG TABLET PO SCH (08:36)
[2022-01-15] MEDS: ENOXAPARIN 40 MG/0.4 ML SYRINGE SUBCUT SCH (08:37)
[2022-01-15] MEDS: busPIRone 5 MG TABLET PO SCH (22:32)
[2022-01-15] MEDS: PRAMIPEXOLE 0.25 MG TABLET PO SCH (22:32)
[2022-01-15] MEDS: SERTRALINE 25 MG TABLET PO SCH (22:33)
[2022-01-15] MEDS: BUDESONIDE/FORMOTEROL 160-4.5 INHALER 6 GM INH SCH (22:34)
[2022-01-16 05:54] LABS: Basophils # 0.1 10*3/uL (0.0-0.2); Basophils % 0.3 % (0.0-0.8); Hematocrit 29.5 VOL% (42.0-52.0); Immature Granulocytes % 8.9 %; Immature Granulocytes Absolute 2.76 #; Lymphocytes # 1.2 10*3/uL (1.4-4.0); Lymphocytes % 3.9 % (21.2-54.2); Mean Corpuscular HGB Conc 30.5 GM/DL (32-36); Mean Corpuscular Volume 97.4 FL (87-102); Mean Platelet Volume 8.6 FL (9.6-12.0); Monocytes % 3.3 % (1.7-12.7); Neutrophils % 83.6 % (38.7-73.9); Platelet Count 293 T/CUMM (130-400); Red Blood Count 3.03 MC/CUMM (3.8-5.5); White Blood Count 30.9 T/CUMM (4-12)
[2022-01-16 06:16] LABS: Alanine Aminotransferase 37 U/L (16-61); Albumin 2.6 G/DL (3.4-5.0); Alkaline Phosphatase 61 U/L (45-117); Aspartate Amino Transferase 12 U/L (0-37); Bilirubin,Total < 0.39 MG/DL (0.20-1.00); Blood Urea Nitrogen 30 MG/DL (7-18); Calcium 8.2 MG/DL (8.5-10.1); Carbon Dioxide 33 MMOL/L (21-32); Chloride 103 MMOL/L (98-107); Estimated Glom Filtration Rate 81 ML/MIN; Glucose 180 MG/DL (74-106); Osmolality,Calculated 283.8 MOS/KG (273-304); Potassium 4.9 MMOL/L (3.5-5.1); Sodium 137 MMOL/L (136-145); Total Protein 5.4 G/DL (6.4-8.2)
[2022-01-16 07:16] LABS: Lymphocytes 9 % (20-55); Platelet Estimate Normal; Total Cells Counted 100
[2022-01-16] MEDS: ALBUTEROL/IPRATROPIUM 3 ML NEB RESP TX SCH ×3 (07:25→18:53)
[2022-01-16] MEDS: BUDESONIDE/FORMOTEROL 160-4.5 INHALER 6 GM INH SCH ×2 (10:44→20:49)
[2022-01-16] MEDS: PRAMIPEXOLE 0.25 MG TABLET PO SCH ×2 (10:44→20:50)
[2022-01-16] MEDS: predniSONE 20 MG TABLET PO SCH ×3 (10:44→20:50)
[2022-01-16] MEDS: valACYclovir 500 MG TABLET PO SCH ×3 (10:45→20:50)
[2022-01-16] MEDS: busPIRone 5 MG TABLET PO SCH ×2 (10:45→20:50)
[2022-01-16] MEDS: PANTOPRAZOLE 40 MG TABLET PO SCH (10:45)
[2022-01-16] MEDS: DAPAGLIFLOZIN 10 MG TABLET PO SCH (10:45)
[2022-01-16] MEDS: carvediloL 3.125 MG TABLET PO SCH ×2 (10:46→20:50)
[2022-01-16] MEDS: ENOXAPARIN 40 MG/0.4 ML SYRINGE SUBCUT SCH (10:46)
[2022-01-16] MEDS: ASPIRIN EC 81 MG TABLET PO SCH (10:46)
[2022-01-16] MEDS: SACUBITRIL/VALSARTAN 49-51 MG TABLET PO SCH ×2 (10:46→20:50)
[2022-01-16] MEDS: SERTRALINE 25 MG TABLET PO SCH (20:50)
[2022-01-17] MEDS: ALBUTEROL 2.5 MG/3 ML NEB RESP TX PRN (00:28)
[2022-01-17 06:38] LABS: Alanine Aminotransferase 35 U/L (16-61); Albumin 2.7 G/DL (3.4-5.0); Alkaline Phosphatase 60 U/L (45-117); Aspartate Amino Transferase 9 U/L (0-37); Bilirubin,Total < 0.39 MG/DL (0.20-1.00); Blood Urea Nitrogen 30 MG/DL (7-18); Calcium 9.1 MG/DL (8.5-10.1); Carbon Dioxide 33 MMOL/L (21-32); Chloride 100 MMOL/L (98-107); Estimated Glom Filtration Rate 66 ML/MIN; Glucose 160 MG/DL (74-106); Osmolality,Calculated 278.1 MOS/KG (273-304); Potassium 4.8 MMOL/L (3.5-5.1); Sodium 135 MMOL/L (136-145); Total Protein 5.7 G/DL (6.4-8.2)
[2022-01-17 06:47] LABS: Basophils # 0.1 10*3/uL (0.0-0.2); Basophils % 0.3 % (0.0-0.8); Hematocrit 30.8 VOL% (42.0-52.0); Hemoglobin 9.6 GM/DL (14.0-18.0); Immature Granulocytes % 7.4 %; Immature Granulocytes Absolute 2.29 #; Lymphocytes # 1.3 10*3/uL (1.4-4.0); Lymphocytes % 4.2 % (21.2-54.2); Mean Corpuscular HGB Conc 31.2 GM/DL (32-36); Mean Corpuscular Volume 95.1 FL (87-102); Mean Platelet Volume 9.1 FL (9.6-12.0); Monocytes % 3.4 % (1.7-12.7); Neutrophils % 84.7 % (38.7-73.9); Platelet Count 376 T/CUMM (130-400); Red Blood Count 3.24 MC/CUMM (3.8-5.5); Red Cell Distribution Width 14.1 % (9.3-17.3); White Blood Count 30.8 T/CUMM (4-12)
[2022-01-17] MEDS: ALBUTEROL/IPRATROPIUM 3 ML NEB RESP TX SCH ×3 (07:19→19:30)
[2022-01-17 07:28] LABS: Band Neutrophils 10 % (0-10); Lymphocytes 8 % (20-55); Metamyelocytes 4 %; Myelocytes 4 %; Platelet Estimate Normal; Total Cells Counted 100
[2022-01-17 07:29] LABS: Anisocytosis 2+; Basophilic Stippling Slight
[2022-01-17 07:30] LABS: Macrocytosis 1+
[2022-01-17] MEDS ORDERED: predniSONE 10 MG TABLET PO SCH (09:00)
[2022-01-17] MEDS: ENOXAPARIN 40 MG/0.4 ML SYRINGE SUBCUT SCH (09:03)
[2022-01-17] MEDS: SACUBITRIL/VALSARTAN 49-51 MG TABLET PO SCH ×2 (09:04→21:38)
[2022-01-17] MEDS: ASPIRIN EC 81 MG TABLET PO SCH (09:04)
[2022-01-17] MEDS: busPIRone 5 MG TABLET PO SCH ×2 (09:04→21:25)
[2022-01-17] MEDS: DAPAGLIFLOZIN 10 MG TABLET PO SCH (09:04)
[2022-01-17] MEDS: valACYclovir 500 MG TABLET PO SCH ×3 (09:04→21:25)
[2022-01-17] MEDS: PRAMIPEXOLE 0.25 MG TABLET PO SCH ×2 (09:05→21:25)
[2022-01-17] MEDS: carvediloL 3.125 MG TABLET PO SCH ×2 (09:05→21:39)
[2022-01-17] MEDS: PANTOPRAZOLE 40 MG TABLET PO SCH (09:05)
[2022-01-17] MEDS: BUDESONIDE/FORMOTEROL 160-4.5 INHALER 6 GM INH SCH ×2 (09:06→21:38)
[2022-01-17] MEDS ORDERED: traZODone 50 MG TABLET PO PRN (15:12)
[2022-01-17] MEDS: SERTRALINE 25 MG TABLET PO SCH (21:26)
[2022-01-18 06:58] LABS: Basophils # 0.1 10*3/uL (0.0-0.2); Basophils % 0.4 % (0.0-0.8); Eosinophils # 0.1 10*3/uL (0.0-0.87); Eosinophils % 0.8 % (0.00-10.9); Hematocrit 30.5 VOL% (42.0-52.0); Hemoglobin 9.6 GM/DL (14.0-18.0); Immature Granulocytes % 8.6 %; Lymphocytes # 2.6 10*3/uL (1.4-4.0); Lymphocytes % 16.1 % (21.2-54.2); Mean Corpuscular HGB Conc 31.5 GM/DL (32-36); Mean Corpuscular Volume 94.4 FL (87-102); Mean Platelet Volume 8.6 FL (9.6-12.0); Monocytes # 1.2 10*3/uL (0.11-0.8); Monocytes % 7.5 % (1.7-12.7); Neutrophils % 66.6 % (38.7-73.9); Platelet Count 271 T/CUMM (130-400); Red Blood Count 3.23 MC/CUMM (3.8-5.5); Red Cell Distribution Width 14.3 % (9.3-17.3); White Blood Count 16.3 T/CUMM (4-12)
[2022-01-18 07:11] LABS: Anisocytosis Slight; Atypical Lymphocytes Few; Band Neutrophils 11 % (0-10); Eosinophils 1 % (0-10); Lymphocytes 20 % (20-55); Macrocytosis 1+; Myelocytes 2 %; Platelet Estimate Normal; Smudge Cells Few; Total Cells Counted 100
[2022-01-18 07:19] LABS: Calcium 8.4 MG/DL (8.5-10.1); Osmolality,Calculated 278.8 MOS/KG (273-304); Potassium 5.2 MMOL/L (3.5-5.1)
[2022-01-18] MEDS: ALBUTEROL/IPRATROPIUM 3 ML NEB RESP TX SCH ×2 (07:35→13:55)
[2022-01-18] MEDS ORDERED: predniSONE 10 MG TABLET PO SCH (09:00)
[2022-01-18] MEDS: ASPIRIN EC 81 MG TABLET PO SCH (09:22)
[2022-01-18] MEDS: valACYclovir 500 MG TABLET PO SCH ×2 (09:22→14:59)
[2022-01-18] MEDS: busPIRone 5 MG TABLET PO SCH (09:22)
[2022-01-18] MEDS: PRAMIPEXOLE 0.25 MG TABLET PO SCH (09:23)
[2022-01-18] MEDS: carvediloL 3.125 MG TABLET PO SCH (09:25)
[2022-01-18] MEDS: DAPAGLIFLOZIN 10 MG TABLET PO SCH (09:25)
[2022-01-18] MEDS: ENOXAPARIN 40 MG/0.4 ML SYRINGE SUBCUT SCH (09:26)
[2022-01-18] MEDS: PANTOPRAZOLE 40 MG TABLET PO SCH (09:26)
[2022-01-18] MEDS: BUDESONIDE/FORMOTEROL 160-4.5 INHALER 6 GM INH SCH (09:27)
[2022-01-18] MEDS ORDERED: SODIUM POLYSTYRENE SULFATE 15 GM/60 ML BOTTLE PO ONE (10:00)
[2022-01-18] MEDS ORDERED: hydrALAZINE 10 MG TABLET PO SCH (10:00)
[2022-01-18 12:04] VITALS: BP 120/59
== END 2022-01-18 17:21 | disposition home health service (06) | DRG 189 ==
LOC: EDBD → EDUNIT# → N.ED 10:02 → N.EDINP 12:11 → SUATTDRO 12:11 → N.CC 20:19 → N.5E 01-12 17:07
PROVIDERS: ADMIT Internal Medicine; ATTEND Internal Medicine

== ENCOUNTER 2022-09-08 15:09 | Inpatient (IN) ==
[2022-09-08] MEDS ORDERED: SODIUM CHLORIDE 0.9% 2,000 ML IV STA (15:19)
[2022-09-08] MEDS ORDERED: ETOMIDATE 20 MG/10 ML VIAL IV STA (15:20)
[2022-09-08] MEDS ORDERED: ROCURONIUM 100 MG/10 ML VIAL IV STA (15:20)
[2022-09-08] MEDS ORDERED: NOREPINEPHRINE 4 MG/4 ML VIAL IV ONE (15:37)
[2022-09-08 15:41] LABS: Arterial Base Excess iSTAT 9 MMOL/L (-2.5-2.5); Arterial Bicarbonate iSTAT 42.2 MMOL/L (20-26); Arterial O2 Saturation iSTAT 100 % (95-100); Arterial PCO2 iSTAT 120 MM HG (35-48); Arterial PO2 iSTAT 391 MM HG (80-95); Arterial Total CO2 iSTAT 46 MMO/L (23-27); Arterial pH iSTAT 7.153 (7.35-7.45)
[2022-09-08] MEDS: NOREPINEPHRINE DRIP 8 MG/250 ML PREMIX IV PRN ×2 (15:42→18:24)
[2022-09-08 15:47] LABS: INR 1.1; PT Patient Result 12.1 SECS (10.1-12.1)
[2022-09-08 15:57] LABS: Alanine Aminotransferase 22 U/L (16-61); Albumin 3.2 G/DL (3.4-5.0); Alkaline Phosphatase 104 U/L (45-117); Aspartate Amino Transferase 26 U/L (0-37); Blood Urea Nitrogen 67 MG/DL (7-18); Calcium 8.9 MG/DL (8.5-10.1); Carbon Dioxide 41 MMOL/L (21-32); Chloride 93 MMOL/L (98-107); Glucose 148 MG/DL (74-106); Potassium 5.5 MMOL/L (3.5-5.1); Sodium 136 MMOL/L (136-145); Total Protein 6.7 G/DL (6.4-8.2)
[2022-09-08 16:03] LABS: Basophils % 0.5 % (0.0-0.8); Eosinophils % 0.2 % (0.00-10.9); Hematocrit 39.7 VOL% (42.0-52.0); Hemoglobin 11.8 GM/DL (14.0-18.0); Immature Granulocytes Absolute 0.06 #; Lymphocytes # 0.7 10*3/uL (1.4-4.0); Lymphocytes % 11.7 % (21.2-54.2); Mean Corpuscular HGB Conc 29.7 GM/DL (32-36); Mean Corpuscular Volume 96.8 FL (87-102); Mean Platelet Volume 10.5 FL (9.6-12.0); Monocytes # 1.1 10*3/uL (0.11-0.8); Monocytes % 19.3 % (1.7-12.7); NRBC # 0.03 10*3/uL; Neutrophils % 67.3 % (38.7-73.9); Platelet Count 163 T/CUMM (130-400); Red Cell Distribution Width 13.1 % (9.3-17.3); White Blood Count 5.9 T/CUMM (4-12)
[2022-09-08 16:13] LABS: Band Neutrophils 38 % (0-10); Lymphocytes 15 % (20-55); Metamyelocytes 2 %; Myelocytes 2 %; Nucleated Red Blood Cells 1 /100 WBC (0-5); Platelet Estimate Adequate; Total Cells Counted 100
[2022-09-08 16:14] LABS: Polychromasia Slight
[2022-09-08] MEDS ORDERED: PIPERACILLIN/TAZOBACTAM 3,375 MG in SODIUM CHLORIDE 0.9% 100 ML IV STA (16:30)
[2022-09-08] MEDS ORDERED: VANCOMYCIN INJ 1,000 MG in SODIUM CHLORIDE 0.9% 250 ML IV STA (16:30)
[2022-09-08] MEDS ORDERED: methylPREDNISolone SOD SUC 125 MG/2 ML VIAL IV STA (16:30)
[2022-09-08 16:38] LABS: Mucus,Urine Occasional /LPF (Occasional); RBC,Urine 1 /HPF (0-4)
[2022-09-08 16:44] LABS: Bilirubin,Urine Negative (Negative); Blood, Urine Negative (Negative); Glucose,Urine (UA) Negative (Negative); Ketones,Urine Negative (Negative); Nitrite,Urine Negative (Negative); Protein,Urine 30 mg/dL (Negative); Urine Appearance Clear (Clear); Urine Color Yellow (Yellow); Urine Specific Gravity >= 1.030 (1.001-1.035); Urine Urobilinogen 0.2 eU/dL (<2.0); Urine pH 5.5 (4.5-8.0)
[2022-09-08] MEDS ORDERED: ALBUTEROL 2.5 MG/3 ML NEB RESP TX PRN (16:57)
[2022-09-08] MEDS ORDERED: ONDANSETRON 4 MG/2 ML VIAL IV PRN (16:57)
[2022-09-08] MEDS ORDERED: SIMETHICONE CHEW 125 MG TABLET PO PRN (16:57)
[2022-09-08] MEDS ORDERED: LACTULOSE 20 GM/30 ML UDCUP PO PRN (16:57)
[2022-09-08] MEDS ORDERED: DOCUSATE SODIUM 100 MG CAPSULE PO PRN (16:57)
[2022-09-08] MEDS: SODIUM CHLORIDE 0.9% 1,000 ML IV SCH (17:35)
[2022-09-08 17:44] LABS: Barbiturates Screen,Urine Negative (Negative); Benzodiazepines Screen,Urine Positive (Negative); Cannabinoid Screen,Urine Negative (Negative); Opiate Screen,Urine Positive (Negative); Phencyclidine Screen,Urine Negative (Negative)
[2022-09-08] MEDS: PANTOPRAZOLE 40 MG VIAL IV SCH (18:04)
[2022-09-08 18:14] LABS: Arterial Base Excess iSTAT 3 MMOL/L (-2.5-2.5); Arterial Bicarbonate iSTAT 31.7 MMOL/L (20-26); Arterial O2 Saturation iSTAT 100 % (95-100); Arterial PCO2 iSTAT 71 MM HG (35-48); Arterial PO2 iSTAT 401 MM HG (80-95); Arterial Total CO2 iSTAT 34 MMO/L (23-27); Arterial pH iSTAT 7.259 (7.35-7.45)
[2022-09-08 19:08] LABS: Calcium 7.9 MG/DL (8.5-10.1); Osmolality,Calculated 296.4 MOS/KG (273-304); Potassium 5.1 MMOL/L (3.5-5.1)
[2022-09-08] MEDS: ALBUTEROL/IPRATROPIUM 3 ML NEB RESP TX SCH (19:25)
[2022-09-08] MEDS: cefTRIAXone 1,000 MG in SODIUM CHLORIDE 0.9% 100 ML IV SCH (20:16)
[2022-09-08] MEDS: AZITHROMYCIN INJ 500 MG in SODIUM CHLORIDE 0.9% 250 ML IV SCH (20:50)
[2022-09-08] MEDS: ENOXAPARIN 30 MG/0.3 ML SYRINGE SUBCUT SCH (21:17)
[2022-09-09] MEDS: ALBUTEROL/IPRATROPIUM 3 ML NEB RESP TX SCH ×4 (00:18→19:20)
[2022-09-09] MEDS: methylPREDNISolone SOD SUC 40 MG/1 ML VIAL IV SCH ×3 (00:50→16:17)
[2022-09-09] MEDS: SODIUM CHLORIDE 0.9% 1,000 ML IV SCH ×2 (01:55→02:04)
[2022-09-09 03:35] LABS: Basophils % 0.3 % (0.0-0.8); Hematocrit 33.5 VOL% (42.0-52.0); Hemoglobin 10.5 GM/DL (14.0-18.0); Immature Granulocytes % 0.5 %; Immature Granulocytes Absolute 0.03 #; Lymphocytes # 0.3 10*3/uL (1.4-4.0); Lymphocytes % 4.5 % (21.2-54.2); Mean Corpuscular HGB Conc 31.3 GM/DL (32-36); Mean Corpuscular Volume 93.3 FL (87-102); Mean Platelet Volume 10.1 FL (9.6-12.0); Monocytes # 0.5 10*3/uL (0.11-0.8); Monocytes % 7.4 % (1.7-12.7); NRBC # 0.02 10*3/uL; Neutrophils % 87.3 % (38.7-73.9); Platelet Count 180 T/CUMM (130-400); Red Blood Count 3.59 MC/CUMM (3.8-5.5); Red Cell Distribution Width 13.2 % (9.3-17.3); White Blood Count 6.1 T/CUMM (4-12)
[2022-09-09 04:04] LABS: Albumin 2.6 G/DL (3.4-5.0); Bilirubin,Total 0.5 MG/DL (0.20-1.00); Calcium 8.2 MG/DL (8.5-10.1); Osmolality,Calculated 295.8 MOS/KG (273-304); Potassium 4.6 MMOL/L (3.5-5.1); Risk Ratio 3.12; Thyroid Stimulating Hormone 0.298 uIU/ml (0.358-3.74); Total Protein 6.5 G/DL (6.4-8.2); VLDL Cholesterol 76.8 MG/DL
[2022-09-09 04:14] LABS: Lymphocytes 16 % (20-55); Platelet Estimate Adequate; Total Cells Counted 100
[2022-09-09 05:01] LABS: Arterial Base Excess iSTAT 4 MMOL/L (-2.5-2.5); Arterial Bicarbonate iSTAT 30.1 MMOL/L (20-26); Arterial O2 Saturation iSTAT 97 % (95-100); Arterial PCO2 iSTAT 54 MM HG (35-48); Arterial PO2 iSTAT 100 MM HG (80-95); Arterial Total CO2 iSTAT 32 MMO/L (23-27); Arterial pH iSTAT 7.354 (7.35-7.45)
[2022-09-09] MEDS: ASPIRIN EC 81 MG TABLET PO SCH (08:45)
[2022-09-09] MEDS: LACTATED RINGERS 1,000 ML IV SCH ×2 (08:45→18:36)
[2022-09-09] MEDS: SERTRALINE 50 MG TABLET PO SCH (08:47)
[2022-09-09] MEDS: PANTOPRAZOLE 40 MG VIAL IV SCH (16:16)
[2022-09-09] MEDS: cefTRIAXone 1,000 MG in SODIUM CHLORIDE 0.9% 100 ML IV SCH (16:16)
[2022-09-09] MEDS: AZITHROMYCIN INJ 500 MG in SODIUM CHLORIDE 0.9% 250 ML IV SCH (17:17)
[2022-09-09] MEDS: MORPHINE 2 MG/1 ML SYRINGE IV PRN (19:46)
[2022-09-09] MEDS: ENOXAPARIN 30 MG/0.3 ML SYRINGE SUBCUT SCH (21:18)
[2022-09-10] MEDS: hydrALAZINE 20 MG/1 ML VIAL IV PRN ×2 (00:07→04:16)
[2022-09-10] MEDS: methylPREDNISolone SOD SUC 40 MG/1 ML VIAL IV SCH ×3 (00:09→16:20)
[2022-09-10] MEDS: ALBUTEROL/IPRATROPIUM 3 ML NEB RESP TX SCH ×4 (02:31→20:02)
[2022-09-10 02:57] LABS: Arterial Base Excess iSTAT 10 MMOL/L (-2.5-2.5); Arterial Bicarbonate iSTAT 35.2 MMOL/L (20-26); Arterial O2 Saturation iSTAT 99 % (95-100); Arterial PCO2 iSTAT 52 MM HG (35-48); Arterial PO2 iSTAT 130 MM HG (80-95); Arterial Total CO2 iSTAT 37 MMO/L (23-27); Arterial pH iSTAT 7.439 (7.35-7.45)
[2022-09-10 03:12] LABS: Basophils % 0.3 % (0.0-0.8); Hematocrit 28.3 VOL% (42.0-52.0); Hemoglobin 8.8 GM/DL (14.0-18.0); Immature Granulocytes % 0.8 %; Immature Granulocytes Absolute 0.03 #; Lymphocytes # 0.3 10*3/uL (1.4-4.0); Lymphocytes % 8.8 % (21.2-54.2); Mean Corpuscular HGB Conc 31.1 GM/DL (32-36); Mean Corpuscular Volume 92.5 FL (87-102); Mean Platelet Volume 9.9 FL (9.6-12.0); Monocytes # 0.4 10*3/uL (0.11-0.8); Monocytes % 9.6 % (1.7-12.7); NRBC # 0.03 10*3/uL; Neutrophils % 80.5 % (38.7-73.9); Platelet Count 106 T/CUMM (130-400); Red Blood Count 3.06 MC/CUMM (3.8-5.5); Red Cell Distribution Width 13.8 % (9.3-17.3); White Blood Count 3.9 T/CUMM (4-12)
[2022-09-10 03:23] LABS: Calcium 9.2 MG/DL (8.5-10.1); Osmolality,Calculated 301.7 MOS/KG (273-304); Potassium 3.8 MMOL/L (3.5-5.1)
[2022-09-10 03:41] LABS: Lymphocytes 16 % (20-55); Nucleated Red Blood Cells 2 /100 WBC (0-5); Platelet Estimate Decreased; Total Cells Counted 100
[2022-09-10] MEDS: LACTATED RINGERS 1,000 ML IV SCH (05:08)
[2022-09-10] MEDS: MORPHINE 2 MG/1 ML SYRINGE IV PRN ×2 (07:25→19:05)
[2022-09-10] MEDS: SERTRALINE 50 MG TABLET PO SCH (08:14)
[2022-09-10] MEDS: ASPIRIN EC 81 MG TABLET PO SCH (08:14)
[2022-09-10 10:32] LABS: Arterial Base Excess iSTAT 9 MMOL/L (-2.5-2.5); Arterial Bicarbonate iSTAT 37.1 MMOL/L (20-26); Arterial O2 Saturation iSTAT 97 % (95-100); Arterial PCO2 iSTAT 72 MM HG (35-48); Arterial PO2 iSTAT 107 MM HG (80-95); Arterial Total CO2 iSTAT 39 MMO/L (23-27); Arterial pH iSTAT 7.321 (7.35-7.45)
[2022-09-10] MEDS: PANTOPRAZOLE 40 MG VIAL IV SCH (16:19)
[2022-09-10] MEDS: cefTRIAXone 1,000 MG in SODIUM CHLORIDE 0.9% 100 ML IV SCH (16:19)
[2022-09-10] MEDS: AZITHROMYCIN INJ 500 MG in SODIUM CHLORIDE 0.9% 250 ML IV SCH (17:20)
[2022-09-10] MEDS: ENOXAPARIN 30 MG/0.3 ML SYRINGE SUBCUT SCH (20:35)
[2022-09-11] MEDS: methylPREDNISolone SOD SUC 40 MG/1 ML VIAL IV SCH ×3 (00:11→16:10)
[2022-09-11] MEDS: INSULIN LISPRO 100 UNIT/ML SUBCUT SCH ×5 (00:11→23:59)
[2022-09-11] MEDS: ALBUTEROL/IPRATROPIUM 3 ML NEB RESP TX SCH ×4 (01:06→19:17)
[2022-09-11 03:26] LABS: Hematocrit 28.9 VOL% (42.0-52.0); Hemoglobin 8.8 GM/DL (14.0-18.0); Immature Granulocytes % 1.9 %; Immature Granulocytes Absolute 0.09 #; Lymphocytes # 0.3 10*3/uL (1.4-4.0); Lymphocytes % 7.2 % (21.2-54.2); Mean Corpuscular HGB Conc 30.4 GM/DL (32-36); Monocytes # 0.6 10*3/uL (0.11-0.8); Monocytes % 12.6 % (1.7-12.7); Neutrophils % 78.3 % (38.7-73.9); Platelet Count 116 T/CUMM (130-400); Red Blood Count 3.01 MC/CUMM (3.8-5.5); White Blood Count 4.8 T/CUMM (4-12)
[2022-09-11 03:56] LABS: Calcium 9.3 MG/DL (8.5-10.1); Potassium 3.7 MMOL/L (3.5-5.1)
[2022-09-11 03:57] LABS: Osmolality,Calculated 301.7 MOS/KG (273-304)
[2022-09-11 04:24] LABS: Arterial Base Excess iSTAT 13 MMOL/L (-2.5-2.5); Arterial Bicarbonate iSTAT 38.5 MMOL/L (20-26); Arterial O2 Saturation iSTAT 97 % (95-100); Arterial PCO2 iSTAT 53 MM HG (35-48); Arterial PO2 iSTAT 91 MM HG (80-95); Arterial Total CO2 iSTAT 40 MMO/L (23-27); Arterial pH iSTAT 7.467 (7.35-7.45)
[2022-09-11] MEDS ORDERED: POTASSIUM BICARB EFFERVESCENT 20 MEQ TAB.EFF PER TUBE PRN (06:35)
[2022-09-11] MEDS: MORPHINE 2 MG/1 ML SYRINGE IV PRN ×2 (07:09→16:13)
[2022-09-11] MEDS: ASPIRIN EC 81 MG TABLET PO SCH (08:10)
[2022-09-11] MEDS: SERTRALINE 50 MG TABLET PO SCH (08:11)
[2022-09-11] MEDS: PANTOPRAZOLE 40 MG VIAL IV SCH (16:11)
[2022-09-11] MEDS: cefTRIAXone 1,000 MG in SODIUM CHLORIDE 0.9% 100 ML IV SCH (16:20)
[2022-09-11] MEDS: AZITHROMYCIN INJ 500 MG in SODIUM CHLORIDE 0.9% 250 ML IV SCH (17:21)
[2022-09-11] MEDS: ENOXAPARIN 30 MG/0.3 ML SYRINGE SUBCUT SCH (21:14)
[2022-09-12] MEDS: ALBUTEROL/IPRATROPIUM 3 ML NEB RESP TX SCH ×4 (01:00→17:43)
[2022-09-12 03:28] LABS: Basophils % 0.1 % (0.0-0.8); Hematocrit 29.8 VOL% (42.0-52.0); Hemoglobin 8.9 GM/DL (14.0-18.0); Immature Granulocytes % 4.5 %; Immature Granulocytes Absolute 0.31 #; Lymphocytes # 0.3 10*3/uL (1.4-4.0); Lymphocytes % 4.6 % (21.2-54.2); Mean Corpuscular HGB Conc 29.9 GM/DL (32-36); Mean Corpuscular Volume 97.4 FL (87-102); Mean Platelet Volume 9.8 FL (9.6-12.0); Monocytes # 0.9 10*3/uL (0.11-0.8); Monocytes % 13.3 % (1.7-12.7); NRBC # 0.02 10*3/uL; Neutrophils % 77.5 % (38.7-73.9); Platelet Count 138 T/CUMM (130-400); Red Blood Count 3.06 MC/CUMM (3.8-5.5); Red Cell Distribution Width 14.2 % (9.3-17.3); White Blood Count 6.9 T/CUMM (4-12)
[2022-09-12] MEDS: MORPHINE 2 MG/1 ML SYRINGE IV PRN ×4 (03:31→21:46)
[2022-09-12 03:48] LABS: Calcium 8.9 MG/DL (8.5-10.1); Potassium 4.7 MMOL/L (3.5-5.1)
[2022-09-12 03:55] LABS: Hypochromia Slight; Lymphocytes 5 % (20-55); Platelet Estimate Adequate; Total Cells Counted 100
[2022-09-12 03:56] LABS: Polychromasia Slight
[2022-09-12 03:57] LABS: Osmolality,Calculated 302.7 MOS/KG (273-304)
[2022-09-12 05:23] LABS: Arterial Base Excess iSTAT 12 MMOL/L (-2.5-2.5); Arterial Bicarbonate iSTAT 38.3 MMOL/L (20-26); Arterial O2 Saturation iSTAT 88 % (95-100); Arterial PCO2 iSTAT 57 MM HG (35-48); Arterial PO2 iSTAT 55 MM HG (80-95); Arterial Total CO2 iSTAT 40 MMO/L (23-27); Arterial pH iSTAT 7.433 (7.35-7.45)
[2022-09-12 05:44] LABS: Arterial Base Excess iSTAT 13 MMOL/L (-2.5-2.5); Arterial Bicarbonate iSTAT 38.8 MMOL/L (20-26); Arterial O2 Saturation iSTAT 98 % (95-100); Arterial PCO2 iSTAT 55 MM HG (35-48); Arterial PO2 iSTAT 111 MM HG (80-95); Arterial Total CO2 iSTAT 40 MMO/L (23-27); Arterial pH iSTAT 7.459 (7.35-7.45)
[2022-09-12] MEDS: INSULIN LISPRO 100 UNIT/ML SUBCUT SCH ×4 (06:05→23:57)
[2022-09-12] MEDS: SERTRALINE 50 MG TABLET PO SCH (08:48)
[2022-09-12] MEDS: ASPIRIN EC 81 MG TABLET PO SCH (08:48)
[2022-09-12] MEDS: methylPREDNISolone SOD SUC 40 MG/1 ML VIAL IV SCH ×3 (08:48→18:07)
[2022-09-12] MEDS: PANTOPRAZOLE 40 MG VIAL IV SCH (18:05)
[2022-09-12] MEDS: cefTRIAXone 1,000 MG in SODIUM CHLORIDE 0.9% 100 ML IV SCH (18:10)
[2022-09-12] MEDS: AZITHROMYCIN INJ 500 MG in SODIUM CHLORIDE 0.9% 250 ML IV SCH (18:41)
[2022-09-12] MEDS: ENOXAPARIN 30 MG/0.3 ML SYRINGE SUBCUT SCH (21:30)
[2022-09-12] MEDS: hydrALAZINE 20 MG/1 ML VIAL IV PRN (22:10)
[2022-09-13] MEDS: ALBUTEROL/IPRATROPIUM 3 ML NEB RESP TX SCH ×6 (00:29→23:53)
[2022-09-13] MEDS: methylPREDNISolone SOD SUC 40 MG/1 ML VIAL IV SCH ×3 (01:33→18:00)
[2022-09-13 03:59] LABS: Arterial Base Excess iSTAT 10 MMOL/L (-2.5-2.5); Arterial Bicarbonate iSTAT 38.4 MMOL/L (20-26); Arterial O2 Saturation iSTAT 97 % (95-100); Arterial PCO2 iSTAT 73 MM HG (35-48); Arterial PO2 iSTAT 107 MM HG (80-95); Arterial Total CO2 iSTAT 41 MMO/L (23-27); Arterial pH iSTAT 7.327 (7.35-7.45)
[2022-09-13 04:33] LABS: Eosinophils % 0.1 % (0.00-10.9); Lymphocytes % 3.6 % (21.2-54.2)
[2022-09-13 04:44] LABS: Calcium 9.2 MG/DL (8.5-10.1); Potassium 5.5 MMOL/L (3.5-5.1)
[2022-09-13 04:55] LABS: Basophils # 0.1 10*3/uL (0.0-0.2); Basophils % 0.5 % (0.0-0.8); Hematocrit 35.1 VOL% (42.0-52.0); Hemoglobin 10.4 GM/DL (14.0-18.0); Immature Granulocytes % 5.6 %; Immature Granulocytes Absolute 0.78 #; Lymphocytes # 0.5 10*3/uL (1.4-4.0); Mean Corpuscular HGB Conc 29.6 GM/DL (32-36); Mean Corpuscular Volume 98.3 FL (87-102); Mean Platelet Volume 9.9 FL (9.6-12.0); Monocytes # 0.7 10*3/uL (0.11-0.8); Monocytes % 5.3 % (1.7-12.7); Neutrophils % 84.9 % (38.7-73.9); Platelet Count 190 T/CUMM (130-400); Red Blood Count 3.57 MC/CUMM (3.8-5.5); Red Cell Distribution Width 14.1 % (9.3-17.3)
[2022-09-13 05:03] LABS: Hypochromia Slight; Lymphocytes 11 % (20-55); Platelet Estimate Adequate; Total Cells Counted 100
[2022-09-13] MEDS: INSULIN LISPRO 100 UNIT/ML SUBCUT SCH ×3 (05:54→19:02)
[2022-09-13 07:27] LABS: Arterial Base Excess iSTAT 11 MMOL/L (-2.5-2.5); Arterial Bicarbonate iSTAT 38.4 MMOL/L (20-26); Arterial O2 Saturation iSTAT 97 % (95-100); Arterial PCO2 iSTAT 65 MM HG (35-48); Arterial PO2 iSTAT 93 MM HG (80-95); Arterial Total CO2 iSTAT 40 MMO/L (23-27); Arterial pH iSTAT 7.377 (7.35-7.45)
[2022-09-13] MEDS: ASPIRIN EC 81 MG TABLET PO SCH (08:48)
[2022-09-13] MEDS: SERTRALINE 50 MG TABLET PO SCH (08:48)
[2022-09-13] MEDS: ENOXAPARIN 40 MG/0.4 ML SYRINGE SUBCUT SCH (08:49)
[2022-09-13] MEDS: INSULIN GLARGINE 100 UNIT/ML SUBCUT SCH ×2 (08:49→10:28)
[2022-09-13] MEDS: PANTOPRAZOLE 40 MG VIAL IV SCH (17:30)
[2022-09-13] MEDS: cefTRIAXone 1,000 MG in SODIUM CHLORIDE 0.9% 100 ML IV SCH (18:00)
[2022-09-14] MEDS: INSULIN LISPRO 100 UNIT/ML SUBCUT SCH ×4 (00:38→21:31)
[2022-09-14] MEDS: methylPREDNISolone SOD SUC 40 MG/1 ML VIAL IV SCH ×2 (01:29→12:49)
[2022-09-14] MEDS: ALBUTEROL/IPRATROPIUM 3 ML NEB RESP TX SCH ×6 (03:03→23:10)
[2022-09-14 03:05] LABS: Arterial Base Excess iSTAT 13 MMOL/L (-2.5-2.5); Arterial Bicarbonate iSTAT 39.5 MMOL/L (20-26); Arterial O2 Saturation iSTAT 96 % (95-100); Arterial PCO2 iSTAT 63 MM HG (35-48); Arterial PO2 iSTAT 83 MM HG (80-95); Arterial Total CO2 iSTAT 41 MMO/L (23-27); Arterial pH iSTAT 7.406 (7.35-7.45)
[2022-09-14 03:23] LABS: Basophils % 0.2 % (0.0-0.8); Hematocrit 31.8 VOL% (42.0-52.0); Hemoglobin 9.6 GM/DL (14.0-18.0); Immature Granulocytes % 5.2 %; Lymphocytes # 0.8 10*3/uL (1.4-4.0); Lymphocytes % 5.1 % (21.2-54.2); Mean Corpuscular HGB Conc 30.2 GM/DL (32-36); Mean Corpuscular Volume 95.5 FL (87-102); Mean Platelet Volume 9.6 FL (9.6-12.0); Monocytes # 0.5 10*3/uL (0.11-0.8); Monocytes % 3.5 % (1.7-12.7); Platelet Count 199 T/CUMM (130-400); Red Blood Count 3.33 MC/CUMM (3.8-5.5); Red Cell Distribution Width 13.6 % (9.3-17.3); White Blood Count 15.3 T/CUMM (4-12)
[2022-09-14 03:37] LABS: Potassium 5.3 MMOL/L (3.5-5.1)
[2022-09-14 03:44] LABS: Hypochromia Slight; Lymphocytes 7 % (20-55); Platelet Estimate Adequate; Total Cells Counted 100
[2022-09-14] MEDS: SERTRALINE 50 MG TABLET PO SCH (08:21)
[2022-09-14] MEDS: ENOXAPARIN 40 MG/0.4 ML SYRINGE SUBCUT SCH (08:21)
[2022-09-14] MEDS: ASPIRIN EC 81 MG TABLET PO SCH (08:21)
[2022-09-14] MEDS: INSULIN GLARGINE 100 UNIT/ML SUBCUT SCH (09:25)
[2022-09-14] MEDS: cefTRIAXone 1,000 MG in SODIUM CHLORIDE 0.9% 100 ML IV SCH (16:17)
[2022-09-14] MEDS ORDERED: ALPRAZolam 0.25 MG TABLET PO ONE (20:28)
[2022-09-15] MEDS: INSULIN LISPRO 100 UNIT/ML SUBCUT SCH ×4 (00:26→17:19)
[2022-09-15] MEDS: NON-FORMULARY MEDICATION (Budesonide-Glycopyr-Formoterol [Breztri Aerosphere] 160-9-4.8 mc INH SCH ×3 (02:00→21:49)
[2022-09-15] MEDS: methylPREDNISolone SOD SUC 40 MG/1 ML VIAL IV SCH ×2 (02:19→14:25)
[2022-09-15] MEDS: ALBUTEROL/IPRATROPIUM 3 ML NEB RESP TX SCH ×6 (03:43→23:30)
[2022-09-15 06:29] LABS: Basophils % 0.2 % (0.0-0.8); Eosinophils % 0.2 % (0.00-10.9); Hematocrit 32.4 VOL% (42.0-52.0); Immature Granulocytes % 4.8 %; Immature Granulocytes Absolute 0.83 #; Lymphocytes # 0.5 10*3/uL (1.4-4.0); Lymphocytes % 2.8 % (21.2-54.2); Mean Corpuscular HGB Conc 30.9 GM/DL (32-36); Mean Corpuscular Volume 93.9 FL (87-102); Mean Platelet Volume 9.4 FL (9.6-12.0); Monocytes # 0.4 10*3/uL (0.11-0.8); Monocytes % 2.5 % (1.7-12.7); Neutrophils % 89.5 % (38.7-73.9); Platelet Count 250 T/CUMM (130-400); Red Blood Count 3.45 MC/CUMM (3.8-5.5); Red Cell Distribution Width 13.7 % (9.3-17.3); White Blood Count 17.4 T/CUMM (4-12)
[2022-09-15 06:51] LABS: Calcium 9.1 MG/DL (8.5-10.1); Hypochromia Slight; Lymphocytes 6 % (20-55); Microcytosis Slight; Osmolality,Calculated 281.7 MOS/KG (273-304); Platelet Estimate Adequate; Potassium 4.8 MMOL/L (3.5-5.1); Total Cells Counted 100
[2022-09-15] MEDS ORDERED: PHENOL 1.4% THROAT SPRAY 177 ML BOTTLE PO PRN (08:36)
[2022-09-15] MEDS: ENOXAPARIN 40 MG/0.4 ML SYRINGE SUBCUT SCH (09:27)
[2022-09-15] MEDS: SERTRALINE 50 MG TABLET PO SCH (09:28)
[2022-09-15] MEDS: ASPIRIN EC 81 MG TABLET PO SCH (09:28)
[2022-09-15] MEDS: PANTOPRAZOLE 40 MG TABLET PO SCH (09:28)
[2022-09-15] MEDS: INSULIN GLARGINE 100 UNIT/ML SUBCUT SCH (09:33)
[2022-09-15] MEDS: cefTRIAXone 1,000 MG in SODIUM CHLORIDE 0.9% 100 ML IV SCH (17:17)
[2022-09-16] MEDS: INSULIN LISPRO 100 UNIT/ML SUBCUT SCH ×4 (01:50→18:36)
[2022-09-16] MEDS: methylPREDNISolone SOD SUC 40 MG/1 ML VIAL IV SCH ×2 (01:50→14:10)
[2022-09-16] MEDS: ALBUTEROL/IPRATROPIUM 3 ML NEB RESP TX SCH ×6 (01:55→23:00)
[2022-09-16] MEDS: SERTRALINE 50 MG TABLET PO SCH (09:39)
[2022-09-16] MEDS: ASPIRIN EC 81 MG TABLET PO SCH (09:39)
[2022-09-16] MEDS: PANTOPRAZOLE 40 MG TABLET PO SCH (09:40)
[2022-09-16] MEDS: ENOXAPARIN 40 MG/0.4 ML SYRINGE SUBCUT SCH (09:41)
[2022-09-16] MEDS: INSULIN GLARGINE 100 UNIT/ML SUBCUT SCH (09:41)
[2022-09-16] MEDS: NON-FORMULARY MEDICATION (Budesonide-Glycopyr-Formoterol [Breztri Aerosphere] 160-9-4.8 mc INH SCH (09:58)
[2022-09-16] MEDS: cefTRIAXone 1,000 MG in SODIUM CHLORIDE 0.9% 100 ML IV SCH (17:50)
[2022-09-17] MEDS: INSULIN LISPRO 100 UNIT/ML SUBCUT SCH ×4 (01:28→18:22)
[2022-09-17] MEDS: methylPREDNISolone SOD SUC 40 MG/1 ML VIAL IV SCH ×2 (01:33→13:15)
[2022-09-17] MEDS: ALBUTEROL/IPRATROPIUM 3 ML NEB RESP TX SCH ×6 (02:56→23:07)
[2022-09-17 05:11] LABS: Basophils % 0.1 % (0.0-0.8); Eosinophils % 0.1 % (0.00-10.9); Hematocrit 29.8 VOL% (42.0-52.0); Hemoglobin 9.1 GM/DL (14.0-18.0); Immature Granulocytes % 2.4 %; Immature Granulocytes Absolute 0.31 #; Lymphocytes # 0.2 10*3/uL (1.4-4.0); Lymphocytes % 1.9 % (21.2-54.2); Mean Corpuscular HGB Conc 30.5 GM/DL (32-36); Mean Corpuscular Volume 97.1 FL (87-102); Mean Platelet Volume 8.7 FL (9.6-12.0); Monocytes # 0.5 10*3/uL (0.11-0.8); Monocytes % 3.5 % (1.7-12.7); Platelet Count 263 T/CUMM (130-400); Red Blood Count 3.07 MC/CUMM (3.8-5.5); Red Cell Distribution Width 13.8 % (9.3-17.3); White Blood Count 12.9 T/CUMM (4-12)
[2022-09-17 05:27] LABS: Calcium 8.6 MG/DL (8.5-10.1); Osmolality,Calculated 284.3 MOS/KG (273-304); Potassium 4.1 MMOL/L (3.5-5.1)
[2022-09-17 06:27] LABS: Lymphocytes 1 % (20-55); Microcytosis Slight; Platelet Estimate Normal; Total Cells Counted 100
[2022-09-17] MEDS: ENOXAPARIN 40 MG/0.4 ML SYRINGE SUBCUT SCH (09:41)
[2022-09-17] MEDS: ASPIRIN EC 81 MG TABLET PO SCH (09:41)
[2022-09-17] MEDS: SERTRALINE 50 MG TABLET PO SCH (09:41)
[2022-09-17] MEDS: PANTOPRAZOLE 40 MG TABLET PO SCH (09:41)
[2022-09-17] MEDS: INSULIN GLARGINE 100 UNIT/ML SUBCUT SCH (09:42)
[2022-09-17] MEDS: NON-FORMULARY MEDICATION (Budesonide-Glycopyr-Formoterol [Breztri Aerosphere] 160-9-4.8 mc INH SCH ×3 (13:44→22:13)
[2022-09-17] MEDS: cefTRIAXone 1,000 MG in SODIUM CHLORIDE 0.9% 100 ML IV SCH (17:30)
[2022-09-17] MEDS: FLUCONAZOLE 200 MG TABLET PO SCH (17:30)
[2022-09-17] MEDS: BUDESONIDE 0.5 MG/2 ML NEB RESP TX SCH (19:10)
[2022-09-17] MEDS: ACETYLCYSTEINE 20% 800 MG/4 ML VIAL RESP TX SCH (23:07)
[2022-09-18] MEDS: INSULIN LISPRO 100 UNIT/ML SUBCUT SCH ×4 (00:31→19:18)
[2022-09-18] MEDS: methylPREDNISolone SOD SUC 40 MG/1 ML VIAL IV SCH ×2 (01:06→17:35)
[2022-09-18] MEDS: ALBUTEROL/IPRATROPIUM 3 ML NEB RESP TX SCH ×5 (03:09→19:50)
[2022-09-18] MEDS: BUDESONIDE 0.5 MG/2 ML NEB RESP TX SCH ×2 (07:50→19:55)
[2022-09-18] MEDS: ACETYLCYSTEINE 20% 800 MG/4 ML VIAL RESP TX SCH ×2 (07:50→14:05)
[2022-09-18] MEDS: ASPIRIN EC 81 MG TABLET PO SCH (09:26)
[2022-09-18] MEDS: PANTOPRAZOLE 40 MG TABLET PO SCH (09:26)
[2022-09-18] MEDS: SERTRALINE 50 MG TABLET PO SCH (09:26)
[2022-09-18] MEDS: ENOXAPARIN 40 MG/0.4 ML SYRINGE SUBCUT SCH (09:27)
[2022-09-18] MEDS: FLUCONAZOLE 200 MG TABLET PO SCH (09:27)
[2022-09-18] MEDS: INSULIN GLARGINE 100 UNIT/ML SUBCUT SCH (09:27)
[2022-09-18] MEDS: NON-FORMULARY MEDICATION (Budesonide-Glycopyr-Formoterol [Breztri Aerosphere] 160-9-4.8 mc INH SCH ×2 (11:13→20:09)
[2022-09-18] MEDS: ALPRAZolam 0.5 MG TABLET PO PRN (14:54)
[2022-09-18] MEDS: cefTRIAXone 1,000 MG in SODIUM CHLORIDE 0.9% 100 ML IV SCH (17:35)
[2022-09-19] MEDS: ACETYLCYSTEINE 20% 800 MG/4 ML VIAL RESP TX SCH ×4 (00:27→23:30)
[2022-09-19] MEDS: ALBUTEROL/IPRATROPIUM 3 ML NEB RESP TX SCH ×7 (00:27→23:30)
[2022-09-19] MEDS: methylPREDNISolone SOD SUC 40 MG/1 ML VIAL IV SCH ×2 (00:57→12:32)
[2022-09-19] MEDS: INSULIN LISPRO 100 UNIT/ML SUBCUT SCH ×4 (00:57→18:11)
[2022-09-19] MEDS: BUDESONIDE 0.5 MG/2 ML NEB RESP TX SCH ×2 (07:23→19:10)
[2022-09-19] MEDS: INSULIN GLARGINE 100 UNIT/ML SUBCUT SCH (08:56)
[2022-09-19] MEDS: SERTRALINE 50 MG TABLET PO SCH (08:57)
[2022-09-19] MEDS: PANTOPRAZOLE 40 MG TABLET PO SCH (08:57)
[2022-09-19] MEDS: FLUCONAZOLE 200 MG TABLET PO SCH (08:57)
[2022-09-19] MEDS: ASPIRIN EC 81 MG TABLET PO SCH (08:57)
[2022-09-19] MEDS: ENOXAPARIN 40 MG/0.4 ML SYRINGE SUBCUT SCH (08:58)
[2022-09-19] MEDS: NON-FORMULARY MEDICATION (Budesonide-Glycopyr-Formoterol [Breztri Aerosphere] 160-9-4.8 mc INH SCH (11:55)
[2022-09-19] MEDS: ALPRAZolam 0.5 MG TABLET PO PRN (18:15)
[2022-09-20] MEDS: methylPREDNISolone SOD SUC 40 MG/1 ML VIAL IV SCH ×2 (01:15→12:35)
[2022-09-20] MEDS: INSULIN LISPRO 100 UNIT/ML SUBCUT SCH ×5 (01:15→18:51)
[2022-09-20] MEDS: ALBUTEROL/IPRATROPIUM 3 ML NEB RESP TX SCH ×6 (03:15→23:56)
[2022-09-20 05:02] LABS: Basophils % 0.1 % (0.0-0.8); Hematocrit 30.3 VOL% (42.0-52.0); Immature Granulocytes Absolute 0.13 #; Lymphocytes # 0.2 10*3/uL (1.4-4.0); Lymphocytes % 1.4 % (21.2-54.2); Mean Corpuscular HGB Conc 29.7 GM/DL (32-36); Mean Corpuscular Volume 97.7 FL (87-102); Mean Platelet Volume 8.5 FL (9.6-12.0); Monocytes # 0.4 10*3/uL (0.11-0.8); Neutrophils % 94.5 % (38.7-73.9); Platelet Count 271 T/CUMM (130-400); Red Cell Distribution Width 14.1 % (9.3-17.3); White Blood Count 12.6 T/CUMM (4-12)
[2022-09-20 05:15] LABS: Potassium 4.2 MMOL/L (3.5-5.1)
[2022-09-20 05:27] LABS: Osmolality,Calculated 288.3 MOS/KG (273-304)
[2022-09-20 05:29] LABS: Hypochromia Slight; Lymphocytes 1 % (20-55); Platelet Estimate Adequate; Total Cells Counted 100
[2022-09-20 05:30] LABS: Microcytosis Slight
[2022-09-20] MEDS: ACETYLCYSTEINE 20% 800 MG/4 ML VIAL RESP TX SCH ×3 (07:03→23:56)
[2022-09-20] MEDS: BUDESONIDE 0.5 MG/2 ML NEB RESP TX SCH ×2 (07:03→18:07)
[2022-09-20] MEDS: PANTOPRAZOLE 40 MG TABLET PO SCH (10:07)
[2022-09-20] MEDS: ASPIRIN EC 81 MG TABLET PO SCH (10:08)
[2022-09-20] MEDS: SERTRALINE 50 MG TABLET PO SCH (10:08)
[2022-09-20] MEDS: ENOXAPARIN 40 MG/0.4 ML SYRINGE SUBCUT SCH (10:09)
[2022-09-20] MEDS: FLUCONAZOLE 200 MG TABLET PO SCH (10:09)
[2022-09-20] MEDS: INSULIN GLARGINE 100 UNIT/ML SUBCUT SCH (10:10)
[2022-09-20] MEDS: ALPRAZolam 0.5 MG TABLET PO PRN ×2 (10:17→16:53)
[2022-09-21] MEDS: methylPREDNISolone SOD SUC 40 MG/1 ML VIAL IV SCH ×2 (01:02→13:15)
[2022-09-21] MEDS: INSULIN LISPRO 100 UNIT/ML SUBCUT SCH ×4 (01:03→17:40)
[2022-09-21] MEDS: ALBUTEROL/IPRATROPIUM 3 ML NEB RESP TX SCH ×5 (03:08→19:22)
[2022-09-21] MEDS: ACETYLCYSTEINE 20% 800 MG/4 ML VIAL RESP TX SCH ×2 (07:35→14:40)
[2022-09-21] MEDS: BUDESONIDE 0.5 MG/2 ML NEB RESP TX SCH ×2 (07:35→19:22)
[2022-09-21] MEDS: NON-FORMULARY MEDICATION (Budesonide-Glycopyr-Formoterol [Breztri Aerosphere] 160-9-4.8 mc INH SCH ×4 (08:19→12:30)
[2022-09-21] MEDS: ENOXAPARIN 40 MG/0.4 ML SYRINGE SUBCUT SCH (08:36)
[2022-09-21] MEDS: SERTRALINE 50 MG TABLET PO SCH (08:37)
[2022-09-21] MEDS: ASPIRIN EC 81 MG TABLET PO SCH (08:37)
[2022-09-21] MEDS: PANTOPRAZOLE 40 MG TABLET PO SCH (08:37)
[2022-09-21] MEDS: INSULIN GLARGINE 100 UNIT/ML SUBCUT SCH (08:37)
[2022-09-21] MEDS: FLUCONAZOLE 200 MG TABLET PO SCH (08:37)
[2022-09-21] MEDS: ALPRAZolam 0.5 MG TABLET PO PRN ×2 (08:38→17:40)
[2022-09-21] MEDS ORDERED: BENZOCAINE/MENTHOL LOZENGE 18/BOX PO PRN (12:46)
[2022-09-22] MEDS: ALPRAZolam 0.5 MG TABLET PO PRN ×2 (00:02→09:35)
[2022-09-22] MEDS: methylPREDNISolone SOD SUC 40 MG/1 ML VIAL IV SCH ×2 (00:23→13:48)
[2022-09-22] MEDS: INSULIN LISPRO 100 UNIT/ML SUBCUT SCH ×4 (01:00→17:17)
[2022-09-22] MEDS: NON-FORMULARY MEDICATION (Budesonide-Glycopyr-Formoterol [Breztri Aerosphere] 160-9-4.8 mc INH SCH ×2 (03:14→10:22)
[2022-09-22] MEDS: ALBUTEROL/IPRATROPIUM 3 ML NEB RESP TX SCH ×7 (03:56→23:43)
[2022-09-22] MEDS: ACETYLCYSTEINE 20% 800 MG/4 ML VIAL RESP TX SCH ×3 (07:17→14:02)
[2022-09-22] MEDS: BUDESONIDE 0.5 MG/2 ML NEB RESP TX SCH ×3 (07:17→20:07)
[2022-09-22] MEDS: ENOXAPARIN 40 MG/0.4 ML SYRINGE SUBCUT SCH (09:33)
[2022-09-22] MEDS: INSULIN GLARGINE 100 UNIT/ML SUBCUT SCH (09:34)
[2022-09-22] MEDS: FLUCONAZOLE 200 MG TABLET PO SCH (09:34)
[2022-09-22] MEDS: PANTOPRAZOLE 40 MG TABLET PO SCH (09:34)
[2022-09-22] MEDS: SERTRALINE 50 MG TABLET PO SCH (09:34)
[2022-09-22] MEDS: ASPIRIN EC 81 MG TABLET PO SCH (09:34)
[2022-09-22] MEDS: ARFORMOTEROL 15 MCG/2 ML NEB RESP TX SCH (20:07)
[2022-09-22] MEDS: ALPRAZolam 0.25 MG TABLET PO PRN (20:43)
[2022-09-22] MEDS: ZINC OXIDE 16% PASTE 57 GM TUBE TOP SCH (20:43)
[2022-09-23] MEDS: NON-FORMULARY MEDICATION (Budesonide-Glycopyr-Formoterol [Breztri Aerosphere] 160-9-4.8 mc INH SCH ×3 (01:25→21:43)
[2022-09-23] MEDS: methylPREDNISolone SOD SUC 40 MG/1 ML VIAL IV SCH ×2 (01:40→12:07)
[2022-09-23] MEDS: INSULIN LISPRO 100 UNIT/ML SUBCUT SCH ×4 (01:43→17:38)
[2022-09-23] MEDS: ALBUTEROL/IPRATROPIUM 3 ML NEB RESP TX SCH ×6 (02:24→22:35)
[2022-09-23] MEDS: ARFORMOTEROL 15 MCG/2 ML NEB RESP TX SCH ×2 (07:15→19:50)
[2022-09-23] MEDS: BUDESONIDE 0.5 MG/2 ML NEB RESP TX SCH ×2 (07:15→19:50)
[2022-09-23] MEDS: INSULIN GLARGINE 100 UNIT/ML SUBCUT SCH (08:45)
[2022-09-23] MEDS: ENOXAPARIN 40 MG/0.4 ML SYRINGE SUBCUT SCH (08:45)
[2022-09-23] MEDS: ALPRAZolam 0.25 MG TABLET PO PRN ×3 (08:46→21:43)
[2022-09-23] MEDS: THEOPHYLLINE ER (24 HR) 400 MG CAPSULE PO SCH (08:46)
[2022-09-23] MEDS: ASPIRIN EC 81 MG TABLET PO SCH (08:46)
[2022-09-23] MEDS: PANTOPRAZOLE 40 MG TABLET PO SCH (08:47)
[2022-09-23] MEDS: FLUCONAZOLE 200 MG TABLET PO SCH (08:47)
[2022-09-23] MEDS: SERTRALINE 50 MG TABLET PO SCH (09:31)
[2022-09-23] MEDS: ZINC OXIDE 16% PASTE 57 GM TUBE TOP SCH ×2 (10:40→21:43)
[2022-09-24] MEDS: INSULIN LISPRO 100 UNIT/ML SUBCUT SCH ×4 (00:43→17:09)
[2022-09-24] MEDS: methylPREDNISolone SOD SUC 40 MG/1 ML VIAL IV SCH ×2 (00:43→13:48)
[2022-09-24] MEDS: ALBUTEROL/IPRATROPIUM 3 ML NEB RESP TX SCH ×7 (03:24→22:35)
[2022-09-24] MEDS: BUDESONIDE 0.5 MG/2 ML NEB RESP TX SCH ×2 (07:00→18:51)
[2022-09-24] MEDS: ARFORMOTEROL 15 MCG/2 ML NEB RESP TX SCH ×2 (07:00→18:51)
[2022-09-24] MEDS: NON-FORMULARY MEDICATION (Budesonide-Glycopyr-Formoterol [Breztri Aerosphere] 160-9-4.8 mc INH SCH ×2 (08:13→21:52)
[2022-09-24] MEDS: ALPRAZolam 0.25 MG TABLET PO PRN ×2 (08:16→17:08)
[2022-09-24] MEDS: FLUCONAZOLE 200 MG TABLET PO SCH (08:16)
[2022-09-24] MEDS: ZINC OXIDE 16% PASTE 57 GM TUBE TOP SCH ×2 (08:16→21:51)
[2022-09-24] MEDS: ENOXAPARIN 40 MG/0.4 ML SYRINGE SUBCUT SCH (08:16)
[2022-09-24] MEDS: PANTOPRAZOLE 40 MG TABLET PO SCH (08:16)
[2022-09-24] MEDS: SERTRALINE 50 MG TABLET PO SCH (08:16)
[2022-09-24] MEDS: ASPIRIN EC 81 MG TABLET PO SCH (08:16)
[2022-09-24] MEDS: THEOPHYLLINE ER (24 HR) 400 MG CAPSULE PO SCH (08:20)
[2022-09-24] MEDS: INSULIN GLARGINE 100 UNIT/ML SUBCUT SCH (09:28)
[2022-09-25] MEDS: ALPRAZolam 0.25 MG TABLET PO PRN ×3 (00:25→17:21)
[2022-09-25] MEDS: INSULIN LISPRO 100 UNIT/ML SUBCUT SCH ×4 (01:09→18:03)
[2022-09-25] MEDS: methylPREDNISolone SOD SUC 40 MG/1 ML VIAL IV SCH ×2 (01:27→14:05)
[2022-09-25] MEDS: ALBUTEROL/IPRATROPIUM 3 ML NEB RESP TX SCH ×6 (02:00→22:05)
[2022-09-25 04:35] LABS: Eosinophils % 0.3 % (0.00-10.9); Hematocrit 27.1 VOL% (42.0-52.0); Hemoglobin 8.3 GM/DL (14.0-18.0); Immature Granulocytes % 1.1 %; Immature Granulocytes Absolute 0.07 #; Lymphocytes # 0.2 10*3/uL (1.4-4.0); Lymphocytes % 3.3 % (21.2-54.2); Mean Corpuscular HGB Conc 30.6 GM/DL (32-36); Mean Corpuscular Volume 95.1 FL (87-102); Mean Platelet Volume 8.9 FL (9.6-12.0); Monocytes # 0.3 10*3/uL (0.11-0.8); Monocytes % 4.4 % (1.7-12.7); Neutrophils % 90.9 % (38.7-73.9); Platelet Count 147 T/CUMM (130-400); Red Blood Count 2.85 MC/CUMM (3.8-5.5); Red Cell Distribution Width 14.1 % (9.3-17.3); White Blood Count 6.3 T/CUMM (4-12)
[2022-09-25 04:45] LABS: Calcium 8.4 MG/DL (8.5-10.1); Potassium 4.4 MMOL/L (3.5-5.1)
[2022-09-25 04:57] LABS: Osmolality,Calculated 283.8 MOS/KG (273-304)
[2022-09-25 05:03] LABS: Lymphocytes 3 % (20-55); Platelet Estimate Adequate; Total Cells Counted 100
[2022-09-25] MEDS: BUDESONIDE 0.5 MG/2 ML NEB RESP TX SCH ×2 (08:05→19:25)
[2022-09-25] MEDS: ARFORMOTEROL 15 MCG/2 ML NEB RESP TX SCH ×2 (08:05→19:25)
[2022-09-25] MEDS: SERTRALINE 50 MG TABLET PO SCH (08:24)
[2022-09-25] MEDS: PANTOPRAZOLE 40 MG TABLET PO SCH (08:24)
[2022-09-25] MEDS: THEOPHYLLINE ER (24 HR) 400 MG CAPSULE PO SCH (08:24)
[2022-09-25] MEDS: ENOXAPARIN 40 MG/0.4 ML SYRINGE SUBCUT SCH (08:24)
[2022-09-25] MEDS: ASPIRIN EC 81 MG TABLET PO SCH (08:24)
[2022-09-25] MEDS: NON-FORMULARY MEDICATION (Budesonide-Glycopyr-Formoterol [Breztri Aerosphere] 160-9-4.8 mc INH SCH ×2 (10:15→20:40)
[2022-09-25] MEDS: ZINC OXIDE 16% PASTE 57 GM TUBE TOP SCH ×2 (10:40→20:39)
[2022-09-25] MEDS: INSULIN GLARGINE 100 UNIT/ML SUBCUT SCH (11:04)
[2022-09-26] MEDS: INSULIN LISPRO 100 UNIT/ML SUBCUT SCH ×4 (00:14→18:13)
[2022-09-26] MEDS: methylPREDNISolone SOD SUC 40 MG/1 ML VIAL IV SCH ×2 (01:51→12:43)
[2022-09-26] MEDS: ALBUTEROL/IPRATROPIUM 3 ML NEB RESP TX SCH ×5 (03:20→20:36)
[2022-09-26 05:41] LABS: % Iron Saturation 21.1 % (18-50)
[2022-09-26] MEDS: BUDESONIDE 0.5 MG/2 ML NEB RESP TX SCH ×2 (07:27→19:46)
[2022-09-26] MEDS: ARFORMOTEROL 15 MCG/2 ML NEB RESP TX SCH ×2 (07:32→19:46)
[2022-09-26] MEDS: PANTOPRAZOLE 40 MG TABLET PO SCH (09:15)
[2022-09-26] MEDS: INSULIN GLARGINE 100 UNIT/ML SUBCUT SCH (09:15)
[2022-09-26] MEDS: THEOPHYLLINE ER (24 HR) 400 MG CAPSULE PO SCH (09:15)
[2022-09-26] MEDS: SERTRALINE 50 MG TABLET PO SCH (09:15)
[2022-09-26] MEDS: ASPIRIN EC 81 MG TABLET PO SCH (09:15)
[2022-09-26] MEDS: ALPRAZolam 0.25 MG TABLET PO PRN ×2 (09:15→18:24)
[2022-09-26] MEDS: ENOXAPARIN 40 MG/0.4 ML SYRINGE SUBCUT SCH (09:15)
[2022-09-26] MEDS: ZINC OXIDE 16% PASTE 57 GM TUBE TOP SCH ×2 (12:14→21:45)
[2022-09-26] MEDS: NON-FORMULARY MEDICATION (Budesonide-Glycopyr-Formoterol [Breztri Aerosphere] 160-9-4.8 mc INH SCH ×2 (12:14→21:50)
[2022-09-26] MEDS ORDERED: TUBERCULIN SKIN TEST 0.1 ML SYRINGE INTRADERM ONE (15:30)
[2022-09-26] MEDS ORDERED: ALPRAZolam 0.25 MG TABLET PO ONE (19:41)
[2022-09-27] MEDS: ALBUTEROL/IPRATROPIUM 3 ML NEB RESP TX SCH ×7 (00:22→23:35)
[2022-09-27] MEDS: INSULIN LISPRO 100 UNIT/ML SUBCUT SCH ×4 (00:48→18:26)
[2022-09-27] MEDS: methylPREDNISolone SOD SUC 40 MG/1 ML VIAL IV SCH ×2 (00:50→12:51)
[2022-09-27] MEDS: BUDESONIDE 0.5 MG/2 ML NEB RESP TX SCH ×2 (07:49→19:10)
[2022-09-27] MEDS: ARFORMOTEROL 15 MCG/2 ML NEB RESP TX SCH ×2 (07:53→19:10)
[2022-09-27] MEDS: SERTRALINE 50 MG TABLET PO SCH (08:25)
[2022-09-27] MEDS: ASPIRIN EC 81 MG TABLET PO SCH (08:25)
[2022-09-27] MEDS: PANTOPRAZOLE 40 MG TABLET PO SCH (08:25)
[2022-09-27] MEDS: THEOPHYLLINE ER (24 HR) 400 MG CAPSULE PO SCH (08:25)
[2022-09-27] MEDS: ALPRAZolam 0.25 MG TABLET PO PRN ×3 (08:26→22:07)
[2022-09-27] MEDS: ENOXAPARIN 40 MG/0.4 ML SYRINGE SUBCUT SCH (08:26)
[2022-09-27] MEDS: ZINC OXIDE 16% PASTE 57 GM TUBE TOP SCH ×2 (08:26→21:00)
[2022-09-27] MEDS: INSULIN GLARGINE 100 UNIT/ML SUBCUT SCH (08:27)
[2022-09-27] MEDS: NON-FORMULARY MEDICATION (Budesonide-Glycopyr-Formoterol [Breztri Aerosphere] 160-9-4.8 mc INH SCH ×2 (11:28→21:02)
[2022-09-28] MEDS: INSULIN LISPRO 100 UNIT/ML SUBCUT SCH ×4 (00:37→17:24)
[2022-09-28] MEDS: ALBUTEROL/IPRATROPIUM 3 ML NEB RESP TX SCH ×6 (03:00→23:45)
[2022-09-28 05:29] LABS: Basophils % 0.2 % (0.0-0.8); Eosinophils # 0.1 10*3/uL (0.0-0.87); Eosinophils % 1.1 % (0.00-10.9); Hemoglobin 8.6 GM/DL (14.0-18.0); Immature Granulocytes % 2.3 %; Immature Granulocytes Absolute 0.13 #; Lymphocytes # 0.7 10*3/uL (1.4-4.0); Lymphocytes % 11.4 % (21.2-54.2); Mean Corpuscular HGB Conc 30.7 GM/DL (32-36); Mean Corpuscular Volume 97.9 FL (87-102); Mean Platelet Volume 9.4 FL (9.6-12.0); Monocytes # 0.4 10*3/uL (0.11-0.8); NRBC # 0.02 10*3/uL; Platelet Count 109 T/CUMM (130-400); Red Blood Count 2.86 MC/CUMM (3.8-5.5); Red Cell Distribution Width 14.5 % (9.3-17.3); White Blood Count 5.7 T/CUMM (4-12)
[2022-09-28 05:41] LABS: Calcium 8.6 MG/DL (8.5-10.1)
[2022-09-28 05:54] LABS: Potassium 4.7 MMOL/L (3.5-5.1)
[2022-09-28 05:58] LABS: Osmolality,Calculated 276.8 MOS/KG (273-304)
[2022-09-28] MEDS: ARFORMOTEROL 15 MCG/2 ML NEB RESP TX SCH ×2 (07:19→18:56)
[2022-09-28] MEDS: BUDESONIDE 0.5 MG/2 ML NEB RESP TX SCH ×2 (07:19→18:56)
[2022-09-28] MEDS: INSULIN GLARGINE 100 UNIT/ML SUBCUT SCH (08:57)
[2022-09-28] MEDS: ALPRAZolam 0.25 MG TABLET PO PRN ×2 (08:57→17:21)
[2022-09-28] MEDS: ENOXAPARIN 40 MG/0.4 ML SYRINGE SUBCUT SCH (08:57)
[2022-09-28] MEDS: SERTRALINE 50 MG TABLET PO SCH (08:57)
[2022-09-28] MEDS: ASPIRIN EC 81 MG TABLET PO SCH (08:57)
[2022-09-28] MEDS: THEOPHYLLINE ER (24 HR) 400 MG CAPSULE PO SCH (08:57)
[2022-09-28] MEDS: PANTOPRAZOLE 40 MG TABLET PO SCH (08:58)
[2022-09-28] MEDS: predniSONE 20 MG TABLET PO SCH (08:58)
[2022-09-28] MEDS: NON-FORMULARY MEDICATION (Budesonide-Glycopyr-Formoterol [Breztri Aerosphere] 160-9-4.8 mc INH SCH ×2 (09:38→21:30)
[2022-09-28] MEDS: ZINC OXIDE 16% PASTE 57 GM TUBE TOP SCH ×2 (09:38→20:46)
[2022-09-29] MEDS: ALPRAZolam 0.25 MG TABLET PO PRN ×4 (01:02→18:44)
[2022-09-29] MEDS: INSULIN LISPRO 100 UNIT/ML SUBCUT SCH ×4 (01:19→18:21)
[2022-09-29] MEDS: ALBUTEROL/IPRATROPIUM 3 ML NEB RESP TX SCH ×6 (03:50→22:23)
[2022-09-29 05:30] LABS: Basophils % 0.2 % (0.0-0.8); Eosinophils # 0.1 10*3/uL (0.0-0.87); Eosinophils % 1.4 % (0.00-10.9); Hematocrit 28.1 VOL% (42.0-52.0); Hemoglobin 8.5 GM/DL (14.0-18.0); Lymphocytes # 0.8 10*3/uL (1.4-4.0); Lymphocytes % 14.9 % (21.2-54.2); Mean Corpuscular HGB Conc 30.2 GM/DL (32-36); Mean Corpuscular Volume 97.2 FL (87-102); Mean Platelet Volume 9.5 FL (9.6-12.0); Monocytes # 0.4 10*3/uL (0.11-0.8); Monocytes % 7.8 % (1.7-12.7); Neutrophils % 73.9 % (38.7-73.9); Platelet Count 99 T/CUMM (130-400); Red Blood Count 2.89 MC/CUMM (3.8-5.5); Red Cell Distribution Width 14.6 % (9.3-17.3); White Blood Count 5.1 T/CUMM (4-12)
[2022-09-29 05:36] LABS: Calcium 8.4 MG/DL (8.5-10.1); Osmolality,Calculated 283.4 MOS/KG (273-304); Potassium 4.6 MMOL/L (3.5-5.1)
[2022-09-29 05:52] LABS: Eosinophils 2 % (0-10); Hypochromia Slight; Lymphocytes 17 % (20-55); Microcytosis Slight; Platelet Estimate Decreased
[2022-09-29] MEDS: ARFORMOTEROL 15 MCG/2 ML NEB RESP TX SCH ×2 (06:57→19:50)
[2022-09-29] MEDS: BUDESONIDE 0.5 MG/2 ML NEB RESP TX SCH ×2 (06:57→20:11)
[2022-09-29] MEDS: ZINC OXIDE 16% PASTE 57 GM TUBE TOP SCH ×2 (08:30→21:41)
[2022-09-29] MEDS: predniSONE 20 MG TABLET PO SCH (08:30)
[2022-09-29] MEDS: PANTOPRAZOLE 40 MG TABLET PO SCH (08:30)
[2022-09-29] MEDS: THEOPHYLLINE ER (24 HR) 400 MG CAPSULE PO SCH (08:30)
[2022-09-29] MEDS: ASPIRIN EC 81 MG TABLET PO SCH (08:30)
[2022-09-29] MEDS: SERTRALINE 50 MG TABLET PO SCH (08:30)
[2022-09-29] MEDS: NON-FORMULARY MEDICATION (Budesonide-Glycopyr-Formoterol [Breztri Aerosphere] 160-9-4.8 mc INH SCH ×2 (08:31→21:41)
[2022-09-29] MEDS: ENOXAPARIN 40 MG/0.4 ML SYRINGE SUBCUT SCH (08:39)
[2022-09-29] MEDS: INSULIN GLARGINE 100 UNIT/ML SUBCUT SCH (08:39)
[2022-09-29] MEDS ORDERED: ZALEPLON 5 MG CAPSULE PO ONE (21:31)
[2022-09-30] MEDS: INSULIN LISPRO 100 UNIT/ML SUBCUT SCH ×3 (01:33→11:31)
[2022-09-30] MEDS: ALBUTEROL/IPRATROPIUM 3 ML NEB RESP TX SCH ×3 (03:28→11:10)
[2022-09-30 05:26] LABS: Eosinophils # 0.1 10*3/uL (0.0-0.87); Eosinophils % 1.1 % (0.00-10.9); Hematocrit 27.2 VOL% (42.0-52.0); Hemoglobin 8.4 GM/DL (14.0-18.0); Immature Granulocytes % 2.8 %; Immature Granulocytes Absolute 0.15 #; Lymphocytes # 0.8 10*3/uL (1.4-4.0); Lymphocytes % 14.7 % (21.2-54.2); Mean Corpuscular HGB Conc 30.9 GM/DL (32-36); Mean Corpuscular Volume 95.8 FL (87-102); Mean Platelet Volume 9.4 FL (9.6-12.0); Monocytes # 0.5 10*3/uL (0.11-0.8); Monocytes % 9.3 % (1.7-12.7); Neutrophils % 72.1 % (38.7-73.9); Platelet Count 92 T/CUMM (130-400); Red Blood Count 2.84 MC/CUMM (3.8-5.5); Red Cell Distribution Width 14.6 % (9.3-17.3); White Blood Count 5.3 T/CUMM (4-12)
[2022-09-30 05:46] LABS: Calcium 8.6 MG/DL (8.5-10.1); Potassium 4.7 MMOL/L (3.5-5.1)
[2022-09-30 05:59] LABS: Osmolality,Calculated 278.7 MOS/KG (273-304)
[2022-09-30 06:10] LABS: Anisocytosis 1+; Platelet Estimate Decreased
[2022-09-30] MEDS: BUDESONIDE 0.5 MG/2 ML NEB RESP TX SCH (06:50)
[2022-09-30] MEDS: ARFORMOTEROL 15 MCG/2 ML NEB RESP TX SCH (06:50)
[2022-09-30] MEDS: predniSONE 20 MG TABLET PO SCH (08:33)
[2022-09-30] MEDS: SERTRALINE 50 MG TABLET PO SCH (08:34)
[2022-09-30] MEDS: ASPIRIN EC 81 MG TABLET PO SCH (08:34)
[2022-09-30] MEDS: INSULIN GLARGINE 100 UNIT/ML SUBCUT SCH (08:34)
[2022-09-30] MEDS: PANTOPRAZOLE 40 MG TABLET PO SCH (08:34)
[2022-09-30] MEDS: THEOPHYLLINE ER (24 HR) 400 MG CAPSULE PO SCH (08:34)
[2022-09-30] MEDS: ZINC OXIDE 16% PASTE 57 GM TUBE TOP SCH (08:37)
[2022-09-30] MEDS: NON-FORMULARY MEDICATION (Budesonide-Glycopyr-Formoterol [Breztri Aerosphere] 160-9-4.8 mc INH SCH (08:37)
[2022-09-30 12:26] VITALS: BP 124/75
== END 2022-09-30 16:09 | disposition home health service (06) | DRG 208 ==
LOC: N.ED 15:09 → SUATTDRO 16:57 → N.EDINP 16:57 → N.ICU 17:55 → N.3E 09-14 16:49
PROVIDERS: ADMIT Family Medicine; ATTEND Internal Medicine